=== PATIENT | male | born 1960 | race Caucasian/White ===

== ENCOUNTER → 2018-10-13 14:47 | Outpatient (CLI) | payer OTHER, SELFPAY ==
--- NOTE | 2018-10-13 | DI.ECHO.S_ITS ---
[facility]+ [facility] +---------+ : : [address] : [address] : : : : [id number] : : : : Phone: [phone] Echocardiogram Report + + :Name: KIM YODER Study Date: 10/13/2018 Height: 68 in : :[facility] Exam Location: IS Weight: 160 lb : : Gender: Male BSA: 1.9 m2 : :: 1960 Age: 58 yrs BP: 122/77 mmHg: :Reason For Study: MURMUR : : Performed By: Norman Monroy : :Referring: GUALBERTO DE JESUS : + + Interpretation Summary Left ventricular wall thickness is moderately increased. The ejection fraction is estimated to be 60-65%. There seems to be a raphae between the left and noncoronary cusp. The peak aortic velocity is 2 m/sec. Pulmonary artery pressures cannot be estimated because of the lack of a measurable TR jet velocity but the IVC suggests a CVP of around 3 mmHg. No prior echo for comparison. Procedure: A two-dimensional transthoracic echocardiogram with color flow and Doppler was performed. The study quality was technically good. There is no prior echocardiogram noted for this patient. The patient was in normal sinus rhythm during the exam. Left Ventricle: The left ventricle is normal in size. Left ventricular wall thickness is moderately increased. The ejection fraction is estimated to be 60-65%. There are no focal wall motion abnormalities. Diastolic parameters suggest a relaxation abnormality of the left ventricle, consistent with probable normal filling pressures. Right Ventricle: The right ventricle is at the upper limits of normal in size. The right ventricular systolic function is normal. Atria: The left atrium is mildly dilated. Right atrial size is normal. The interatrial septum is intact with no evidence for an atrial septal defect. Mitral Valve: The mitral valve is normal in structure and function. There is mild mitral annular calcification. There is trace mitral regurgitation. Aortic Valve: The aortic valve is moderately calcified. There seems to be a raphae between the left and noncoronary cusp. There is no hemodynamically significant valvular aortic stenosis. The peak aortic velocity is 2 m/sec. There is trace aortic regurgitation. Tricuspid Valve: The tricuspid valve is normal in structure and function. There is trace tricuspid regurgitation. Pulmonary artery pressures cannot be estimated because of the lack of a measurable TR jet velocity but the IVC suggests a CVP of around 3 mmHg. Pulmonic Valve: The pulmonic valve is normal in structure and function. There is trace pulmonic regurgitation. Great Vessels: The aortic root is normal size. The ascending aorta is at the upper limits of normal in size. The pulmonary artery is normal size. The IVC is of normal diameter and collapses greater than 50% with a sniff. This suggests a low right atrial pressure of 3 mm Hg. Pericardium/ Pleura There is no pericardial effusion. There is no pleural effusion. MMode/2D Measurements & Calculations LVIDd: 4.1 cm LVOT diam: 2.2 cm LVIDs: 2.0 cm Ao root diam: 3.0 cm FS: 51.4 % Aortic Jxn: 2.6 cm EPSS: 0.41 cm asc Aorta Diam: 3.5 cm IVSd: 1.2 cm Ao Arch Diam (Prox Trans): 2.7 cm LVPWd: 1.2 cm LV martinez. diameter/BSA (cm/m^2): 2.2 LV sys. diameter/BSA (cm/m^2): 1.1 LA dimension: 3.7 cm RA long axis: 4.1 cm LA A2 area: 20.3 cm2 RA area: 13.4 cm2 LA A4 area: 22.5 cm2 RA vol: 36.9 ml LA length (vol): 5.3 cm RA : 19.8 ml/m2 LA vol: 73.1 ml IVC diam: 1.5 cm LA vol index: 39.3 ml/m2 RVD1 (basal): 4.1 cm RVD2 (mid): 3.6 cm Doppler Measurements & Calculations Ao V2 max: 203.5 cm/sec LVOT Max Dixon: 92.7 cm/sec Ao V2 mean: 162.0 cm/sec LV V1 max P.4 mmHg Ao max P.6 mmHg LV V1 VTI: 21.4 cm Ao mean P.1 mmHg KEVIN(I,D): 1.8 cm2 Ao V2 VTI: 44.9 cm KEVIN(V,D): 1.7 cm2 sev ratio: 0.48 KEVIN indexed to BSA (cm^2/m^2): 0.97 MV E max dixon: 77.7 cm/sec TR max dixon: 211.9 cm/sec MV A max dixon: 91.8 cm/sec TR max P.0 mmHg MV E/A: 0.85 PA V2 max: 81.0 cm/sec Med Peak E' Dixon: 6.0 cm/sec PA V2 mean: 55.4 cm/sec E/E' med: 13.0 PA mean P.4 mmHg Lat Peak E' Dixon: 5.5 cm/sec PA pr(Accel): 21.6 mmHg E/E' lat: 14.2 PA Accel Time: 0.11 sec E/e' average: 13.6 MV dec time: 0.12 sec SV(LVOT): 81.3 ml Electronically signed by: Butch Sprague M.D. on Reading Physician:10/14/2018 12:17 AM
== END ==
PROVIDERS: Visit Provider Family Medicine
DX: R01.1 Cardiac murmur, unspecified (principal)
CPT/HCPCS: 93306

== ENCOUNTER 2019-05-22 09:19 | Emergency (ER) | payer OTHER, SELFPAY ==
[2019-05-22] VITALS (8 sets, daily range): BP systolic 148–188; BP diastolic 90–111; PULSE 82–96; RESP 13–20; TEMP 36.4; O2SAT 100; BMI 20.2
--- NOTE | 2019-05-22 09:51 | ED_ITS ---
HPI - Recheck/Abnormal Lab/Rx General Chief Complaint: Recheck/Abnormal Lab/Rx Stated Complaint: Swollen neck,recent surgery Time Seen by Provider: 05/22/19 09:24 Source: patient and family Mode of arrival: Ambulatory Limitations: no limitations History of Present Illness HPI narrative: Patient comes emergency department complaining of increased swelling at his incision site has left neck. Patient is postop day 6 status post left carotid which done different facility. Patient states that he has actually been fairly well since the surgery. He states that he has had mild sore throat for the last couple of days and that his voice has been hoarse since the surgery. He states that he has not had any fevers or chills, and no body aches or other feeling of being ill. States that he has had fluctuating blood pressure but it has mostly been normal at home. Girlfriend has not noticed any redness or drainage from the wound. Patient states the wound is not painful. He denies any feeling airway compression. He states that for the last several days he has felt as though something is ?in his throat? but that this feeling has not progressed. No other complaints at this time. Related Data Allergies Allergy/AdvReac Type Severity Reaction Status Date / Time gabapentin Allergy Verified 05/22/19 09:36 Review of Systems Constitutional Constitutional: Denies chills, Denies fatigue, Denies fever(s), Denies frequent falls, Denies lethargy and Denies weakness Eyes Eyes: Denies change in vision, Denies eye discharge, Denies irritation and Denies loss of vision ENT Ears, Nose, Mouth, and Throat: Denies change in voice, Denies dizziness, Denies neck pain, Denies sore throat and Denies throat swelling Cardiovascular Cardiovascular: Denies chest pain, Denies irregular heart rhythm, Denies lightheadedness, Denies palpitations, Denies dyspnea, Denies dyspnea on exertion and Denies orthopnea Respiratory Respiratory: Denies cough, Denies dyspnea, Denies dyspnea on exertion and Denies wheezing Gastrointestinal Gastrointestinal: Denies abdominal pain, Denies change in bowel habits, Denies diarrhea, Denies nausea and Denies vomiting Genitourinary Genitourinary: Denies hematuria, Denies flank pain, Denies urinary incontinence and Denies urinary urgency Musculoskeletal Musculoskeletal: Denies back pain, Denies muscle weakness, Denies neck pain, Denies numbness and Denies tingling Integumentary/Breasts Skin/Breast: Denies pruritus, Denies erythema, Denies rash and Denies wounds Comments: Swelling at incision site on left neck Neurologic Neurologic: Denies behavioral changes, Denies confusion, Denies dizziness, Denies frequent falls, Denies loss of vision, Denies numbness, Denies tingling and Denies weakness Psychiatric Psychiatric: Denies anxiety, Denies behavioral changes, Denies confusion, Denies depression, Denies homicidal ideation and Denies suicidal ideation Endocrine Endocrine: Denies fatigue, Denies flushing and Denies palpitations Hematologic/Lymphatic Hematologic/Lymphatic: Denies easy bruising Allergic/Immunologic Allergic/Immunologic: Denies urticaria, Denies throat swelling and Denies wheezing Patient History Medical History HTN (hypertension) (Acute) Surgical History S/P carotid endarterectomy (Acute) Social History Smoking Status: Former smoker alcohol intake frequency: 0-2 drinks per day Substance Use Type: does not use Exam Initial Vital Signs Initial Vital Signs: Vital Signs Temperature 97.5 F L 05/22/19 09:22 Pulse Rate 96 H 05/22/19 09:22 Respiratory Rate 20 05/22/19 09:22 Blood Pressure 187/111 H 05/22/19 09:22 Pulse Oximetry 100 05/22/19 09:22 Const General: cooperative and well developed Nutritional Appearance: well nourished Orientation: alert, awake, oriented x3 and not confused [facility] Head: normocephalic and atraumatic Ears: external ears normal Nose: external nose normal and No nasal discharge Face and sinus: face symmetric and No dry mucous membranes Mouth: oral mucosae normal and moist mucous membranes Teeth and gingiva: dentition normal Eyes General: appearance normal, both eyes and all related structures Eyelids: eyelids normal Conjunctivae: conjunctivae normal Sclera: sclerae normal Pupils: PERRL EOM: EOM intact bilaterally Neck Neck: trachea midline, No lymphadenopathy, No midline deformity and No JVD Lymphatic: No lymphedema Other: Patient's left neck incision site clean dry and intact, with Steri-Strips in place. Induration is noted beneath the skin in about a 1.5 cm border on each side of the incision. No erythema or wound dehiscence is noted. No fluctuance. Carotid pulse is intact. No bruit is auscultated. Chest Chest: normal inspection of the chest Resp Effort & Inspection: normal respiratory effort, able to speak in complete sentences, no respiratory distress and no use of accessory muscles Auscultation: clear to auscultation bilaterally, no rales, no rhonchi and no wheezes Cardio Rate: regular rate Rhythm: regular rhythm Heart Sounds: no click, no gallops, no murmurs and no rubs Pulses: normal peripheral pulses GI Inspection: non-distended Palpation: soft, no hepatosplenomegaly, No guarding, No pulsatile mass and No tender Back/Spine/Pelvis Back: No CVA tenderness Cervical Spine: cervical ROM normal and No pain with cervical ROM Thoracic/Lumbar Spine: thoracic and lumbar spine normal to inspection Skin General: no rashes or lesions noted, No jaundice and No petechiae Other: Neck incision as noted above. Neuro General: alert, oriented x3, gait normal and no focal motor deficits Speech: speech normal Extrem General: full ROM, no clubbing, cyanosis or edema, no pedal edema and no calf tenderness Psych Appearance: well kempt Mental Status: mental status grossly normal Attitude: cooperative Thought Content: normal and suicidality Judgment: judgment good Course Course Course Narrative: Patient was worked up with CT scan of the neck with IV contrast. This did show a fluid collection approximately 6 x 3 x 3 cm that was associated with the patient's carotid artery on the left. This did appear to be exerting a mild amount of pressure on both the carotid artery in the airway. I spoke with Dr. Ortega, the vascular attending on-call at [facility], and she stated that she felt the patient should come to in transfer and be admitted on her service. She requests the patient be kept NPO. I spoke with the patient and his significant other and related the findings and the plan to them and they were agreeable. The patient was comfortable and stable in the emergency department, and no further intervention was warranted, other than that the patient did receive metoprolol for his elevated blood pressure. Patient's labs showed a normal white blood cell count 9.8. The remainder of the labs were unremarkable. Orders Ordered: Discontinued Medications Metoprolol Succinate (Toprol Xl) 25 mg PO NOW ONE Stop: 05/22/19 09:52 Last Admin: 05/22/19 10:00 Dose: 25 mg Documented by: DONNIE Metoprolol Succinate (Toprol Xl) 25 mg PO NOW ONE Stop: 05/22/19 13:20 Last Admin: 05/22/19 13:51 Dose: 25 mg Documented by: DONNIE Vital Signs Vital signs: Vital Signs - 8 hr 05/22/19 09:22 05/22/19 10:00 05/22/19 11:00 Temperature 97.5 F L Pulse Rate 96 H 95 H 83 Respiratory Rate 20 Blood Pressure 187/111 H 172/102 H 148/98 H Blood Pressure [Right Arm] Pulse Oximetry 100 05/22/19 11:24 05/22/19 12:40 05/22/19 13:00 Temperature Pulse Rate 88 85 82 Respiratory Rate 16 16 Blood Pressure Blood Pressure [Right Arm] 148/98 H 158/102 H 157/90 H Pulse Oximetry 100 100 05/22/19 13:51 Temperature Pulse Rate 82 Respiratory Rate Blood Pressure 188/94 H Blood Pressure [Right Arm] Pulse Oximetry MDM - Recheck/Abnormal Lab/Rx Medical Records Attestation: I reviewed the patient's medical records. Lab Data Attestation: I reviewed the patient's lab results. Result diagrams: 05/22/19 10:08 05/22/19 10:11 Labs: Lab Results 05/22/19 05/22/19 Range/Units 10:08 10:11 WBC 9.8 (4.5-11.0) X10^3/uL RBC 3.85 L (4.5-5.9) X10^6/uL Hgb 11.5 L (13.5-17.5) g/dL Hct 33.2 L (41-53) % MCV 86.2 (80-100) fL MCH 30.0 (26-34) PG MCHC 34.8 (30-36) % RDW 13.2 (11.6-14.8) % Plt Count 404 H (150-400) X10^3/uL Neut % (Auto) 68.9 (50-75) % Lymph % (Auto) 19.3 L (25-40) % [place] % (Auto) 10.5 (3-14) % Eos % (Auto) 0.8 L (2-4) % Baso % (Auto) 0.5 (0-2) % Neut # (Auto) 6700 (7179-8088) /uL Lymph # (Auto) 1900 (1057-5703) /uL [place] # (Auto) 1000 H (0-900) /uL Eos # (Auto) 100 (0-450) /uL Baso # (Auto) 0 (0-100) /uL Sodium 128 L (137-145) mmol/L Potassium 4.5 (3.4-5.1) mmol/L Chloride 90 L (98-107) mmol/L Carbon Dioxide 28 (22-32) mmol/L BUN 16 (9-20) mg/dL Creatinine 0.50 L (0.66-1.25) mg/dL Estimated GFR > 60.0 (>60) mL/min BUN/Creatinine Ratio 32.0 H (6-22) Glucose 211 H (80-110) mg/dL Calcium 9.4 (8.4-10.2) mg/dL Imaging Data CT soft tissue neck with contrast: Radiologist's impression: PROCEDURE: CT SOFT TISSUE NECK W CON INDICATIONS: post-op swelling after carotid endarterectomy TECHNIQUE: After the administration of intravenous contrast, 3.0 mm axial sections acquired from the sella to the aortic arch. Additional oblique axial 3.0 mm sections acquired through the pharynx. 3 mm thick coronal and sagittal reformats were generated. For radiation dose reduction, the following was used: automated exposure control. COMPARISON: None. FINDINGS: Image quality: Diagnostic. Lymph nodes: No enlarged lymph nodes seen throughout the neck. Vessels: There is a prominent fluid collection containing air identified near the level of the left carotid bulb that extends along the left sternocleidomastoid muscle. This structure extends from the level of the angle of the mandible to the level of the thyroid cartilage and measures approximately 6.5 x 3.0 x 3.7 cm. Air is contained wit hin this structure. This fluid collection is noted to partially encase the carotid bulb and exerts mild mass effect on the proximal left internal carotid artery. No occlusion or intraluminal thrombus is appreciated. There is also mild mass effect identified involving the internal jugular vein at the level of the angle of the mandible without occlusion evident. Symmetric flow within the bilateral anterior cerebral arteries and middle cerebral arteries is evident within the brain. However, please note that these vessels are not adequately evaluated on this study. Moderate atherosclerotic irregularity is noted involving the right common carotid artery origin and the right carotid bulb without high-grade narrowing evident. Otherwise, the right internal carotid artery is unremarkable. 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 Neck spaces: Again, there is a loculated fluid collection along the lateral margin of the left neck. There may be edema extending into the retropharyngeal space. No loculated fluid collections are evident within the retropharyngeal space. The oropharynx, nasopharynx, and pharynx demonstrate no mucosal lesions. The vocal cords, false vocal cords, pyriform sinuses, epiglottis, vallecula, and tongue base appear to be within normal limits. Glands: The parotid and submandibular glands appear normal. Thyroid gland is not enlarged or adequately evaluated. Miscellaneous: Visualized brain and orbits appear normal. Lung apices appear clear. Superficial soft tissues appear normal. There is mild prominence of the wall of the upper esophagus. Bones: No suspicious bony lesions. Age-appropriate degenerative changes are present. Visualized sinuses and mastoids appear unremarkable. IMPRESSION: 1. Large heterogeneous fluid collection centered at the level of the left carotid bulb probably represents a postoperative fluid collection such as a hematoma or seroma, given the patient's history of recent carotid endarterectomy. However, a superimposed infection cannot be excluded and clinical correlation is recommended. 2. Large fluid collection within the left neck exerts mild mass effect on the proximal left internal carotid artery without occlusion or high grade narrowing appreciated. 3. Retropharyngeal edema/fluid is present without a definable fluid collection evident. Dictated by: Oren Parks M.D. on 05/22/2019 at 9:40 Approved by: Oren Parks M.D. on 05/22/2019 at 9:51 Discharge Plan Departure Patient Disposition: [facility] Clinical Impression: Fluid collection at surgical site Qualifiers: Encounter type: initial encounter Qualified Code(s): T88.8XXA - Other specified complications of surgical and medical care, not elsewhere classified, initial encounter Discharge Date/Time: 05/22/19 14:05 Referrals: Gonzales Becerra MD [Primary Care Provider] -
[2019-05-22] MEDS: METOPROLOL ER 25 MG TABLET PO ×2 (10:00→13:51)
--- NOTE | 2019-05-22 10:15 | DI.CT.S_ITS ---
PROCEDURE: CT SOFT TISSUE NECK W CON INDICATIONS: post-op swelling after carotid endarterectomy TECHNIQUE: After the administration of intravenous contrast, 3.0 mm axial sections acquired from the sella to the aortic arch. Additional oblique axial 3.0 mm sections acquired through the pharynx. 3 mm thick coronal and sagittal reformats were generated. For radiation dose reduction, the following was used: automated exposure control. COMPARISON: None. FINDINGS: Image quality: Diagnostic. Lymph nodes: No enlarged lymph nodes seen throughout the neck. Vessels: There is a prominent fluid collection containing air identified near the level of the left carotid bulb that extends along the left sternocleidomastoid muscle. This structure extends from the level of the angle of the mandible to the level of the thyroid cartilage and measures approximately 6.5 x 3.0 x 3.7 cm. Air is contained within this structure. This fluid collection is noted to partially encase the carotid bulb and exerts mild mass effect on the proximal left internal carotid artery. No occlusion or intraluminal thrombus is appreciated. There is also mild mass effect identified involving the internal jugular vein at the level of the angle of the mandible without occlusion evident. Symmetric flow within the bilateral anterior cerebral arteries and middle cerebral arteries is evident within the brain. However, please note that these vessels are not adequately evaluated on this study. Moderate atherosclerotic irregularity is noted involving the right common carotid artery origin and the right carotid bulb without high-grade narrowing evident. Otherwise, the right internal carotid artery is unremarkable. 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 Neck spaces: Again, there is a loculated fluid collection along the lateral margin of the left neck. There may be edema extending into the retropharyngeal space. No loculated fluid collections are evident within the retropharyngeal space. The oropharynx, nasopharynx, and pharynx demonstrate no mucosal lesions. The vocal cords, false vocal cords, pyriform sinuses, epiglottis, vallecula, and tongue base appear to be within normal limits. Glands: The parotid and submandibular glands appear normal. Thyroid gland is not enlarged or adequately evaluated. Miscellaneous: Visualized brain and orbits appear normal. Lung apices appear clear. Superficial soft tissues appear normal. There is mild prominence of the wall of the upper esophagus. Bones: No suspicious bony lesions. Age-appropriate degenerative changes are present. Visualized sinuses and mastoids appear unremarkable. IMPRESSION: 1. Large heterogeneous fluid collection centered at the level of the left carotid bulb probably represents a postoperative fluid collection such as a hematoma or seroma, given the patient's history of recent carotid endarterectomy. However, a superimposed infection cannot be excluded and clinical correlation is recommended. 2. Large fluid collection within the left neck exerts mild mass effect on the proximal left internal carotid artery without occlusion or high grade narrowing appreciated. 3. Retropharyngeal edema/fluid is present without a definable fluid collection evident. Dictated by: Oren Parks M.D. on 05/22/2019 at 9:40 Approved by: Oren Parks M.D. on 05/22/2019 at 9:51
[2019-05-22 10:24] LABS: Blood Urea Nitrogen 16 mg/dL (9-20); Calcium 9.4 mg/dL (8.4-10.2); Carbon Dioxide 28 mmol/L (22-32); Chloride 90 mmol/L (98-107); Estimated Glomerular Filt Rate > 60.0 mL/min (>60); Glucose 211 mg/dL (80-110); HEMOLYSIS 49 (0-50); Potassium 4.5 mmol/L (3.4-5.1); Sodium 128 mmol/L (137-145)
[2019-05-22 13:18] LABS: Add Manual Diff / Slide Review NO; Basophils Absolute Auto 0 /uL (0-100); Basophils Percent Auto 0.5 % (0-2); Eosinophils Absolute Auto 100 /uL (0-450); Eosinophils Percent Auto 0.8 % (2-4); Hematocrit 33.2 % (41-53); Hemoglobin 11.5 g/dL (13.5-17.5); Lymphocytes Absolute Auto 1900 /uL (1100-4500); Lymphocytes Percent Auto 19.3 % (25-40); Mean Corpuscular HGB Conc 34.8 % (30-36); Mean Corpuscular Volume 86.2 fL (80-100); Monocytes Absolute Auto 1000 /uL (0-900); Monocytes Percent Auto 10.5 % (3-14); Neutrophils Absolute Auto 6700 /uL (1500-7000); Neutrophils Percent Auto 68.9 % (50-75); Platelet Count 404 X10^3/uL (150-400); Red Blood Cell Count 3.85 X10^6/uL (4.5-5.9); Red Cell Distribution Width 13.2 % (11.6-14.8); White Blood Cell Count 9.8 X10^3/uL (4.5-11.0)
== END 2019-05-22 14:05 | disposition short-term general hospital (02) ==
PROVIDERS: Emergency Provider Emergency Medicine; PCP Family Medicine
DX: T88.8XXA Other specified complications of surgical and medical care, not elsewhere classified, initial encounter (principal); I10 Essential (primary) hypertension; R79.89 Other specified abnormal findings of blood chemistry
CPT/HCPCS: 36415; 70491; 80048; 85025; 99283; 99284; Q9967

== ENCOUNTER → 2020-06-13 14:56 | Outpatient (CLI) | payer OTHER, SELFPAY ==
[2020-06-13 17:15] LABS: Prostate Specific Antigen < 0.064 ng/mL (0.10-4.00)
== END ==
PROVIDERS: PCP Family Medicine; Referring Provider Radiology Radiation Oncology; Visit Provider Radiology Radiation Oncology
DX: C61 Malignant neoplasm of prostate (principal)
CPT/HCPCS: 36415; 84153

== ENCOUNTER → 2020-10-01 17:09 | Outpatient (CLI) | payer OTHER, SELFPAY ==
[2020-10-01] MEDS: COVID-19 VACC, Ad26(JANSSEN)/PF 0.5 ML IM (17:20)
== END ==
PROVIDERS: PCP Family Medicine; Visit Provider Internal Medicine
DX: Z23 Encounter for immunization (principal)
CPT/HCPCS: 0031A; 91303

== ENCOUNTER → 2020-12-24 10:04 | Outpatient (CLI) | payer OTHER, SELFPAY ==
--- NOTE | 2020-12-24 10:08 | DI.RAD.S_ITS ---
PROCEDURE: XR TIBIA FIBULA LT 2V INDICATIONS: LEFT CONNER PAIN TECHNIQUE: 2 views of the tibia and fibula were acquired. COMPARISON: None. FINDINGS: Bones: No fractures or dislocations. No suspicious bony lesions. The knee and ankle have mild degenerative changes. Soft tissues: No suspicious soft tissue calcifications or masses. IMPRESSION: No acute traumatic abnormality of the tibia or fibula. Dictated by: Wally Christensen M.D. on 12/24/2020 at 10:49 Approved by: Wally Christensen M.D. on 12/24/2020 at 10:54
== END ==
PROVIDERS: PCP Family Medicine; Referring Provider Family Medicine; Visit Provider Family Medicine
DX: M79.662 Pain in left lower leg (principal)
CPT/HCPCS: 73590

== ENCOUNTER → 2021-01-04 08:34 | Outpatient (CLI) | payer OTHER, SELFPAY ==
[2021-01-04 11:12] LABS: Prostate Specific Antigen < 0.064 ng/mL (0.10-4.00)
== END ==
PROVIDERS: PCP Family Medicine; Referring Provider Radiology Radiation Oncology; Visit Provider Radiology Radiation Oncology
DX: C61 Malignant neoplasm of prostate (principal)
CPT/HCPCS: 36415; 84153

== ENCOUNTER → 2021-07-03 09:23 | Outpatient (CLI) | payer OTHER, SELFPAY ==
[2021-07-03 11:46] LABS: COVID19 -Nasal RAPID Negative (Negative)
== END ==
PROVIDERS: PCP Family Medicine; Visit Provider Physician Assistant
DX: Z20.822 Contact with and (suspected) exposure to COVID-19 (principal)
CPT/HCPCS: 87635

== ENCOUNTER 2021-07-05 13:56 | Day surgery (SDC) | payer OTHER, SELFPAY ==
--- NOTE | 2021-07-05 | PATH_ITS ---
[facility] Accession Number: [id number] . 01 Material submitted: . PART A: colon - DESCENDING COLON POLYP 2MM PART B: sigmoid colon - SIGMOID COLON POLYP 6MM . 02 Diagnosis: A. Descending Colon, Polyp 2 MM, Biopsy: Tubular adenoma. . B. Sigmoid Colon, Polyp 6 MM, Biopsy: Benign lymphoid aggregate. L 07/09/2021 1510 Local . 02 Electronically signed: . Marlin Vigil MD, Pathologist NPI- [id number] . 01 Gross description: . Part A: DESCENDING COLON POLYP 2MM: Received in formalin is 1 fragment(s) of flores, soft tissue measuring 0.3 x 0.3 x 0.3 cm submitted entirely in 1 cassette(s) Part B: SIGMOID COLON POLYP 6MM: Received in formalin is 1 fragment(s) of flores, soft tissue measuring 0.3 x 0.3 x 0.3 cm submitted entirely in 1 cassette(s) /NEVIN 07/08/2021 1904 Local . 02 Pathologist provided ICD-10: D12.4 . 02 CPT . 542002, [id number] Performed at: 01 [facility] [address] [place] [address] [id number] MD Alex Osuna MD Phone: [phone] Performed at: 02 [facility] [address] [place], [place] [id number] MD Marlin Vigil MD Phone: [phone]
--- NOTE | 2021-07-05 12:44 | PM.HP.1 ---
History of Present Illness History of Present Illness Date Patient Seen: 07/05/21 Chief complaint: SCREENING COLONOSCOPY Narrative: 61 Years Old Male seen today for consideration of a screening colonoscopy. Last colonoscopy on 07/01/19 indicated for change in bowel habits, constipation, and weight loss. Prep was poor and 1 year recall recommended with double prep. Internal hemorrhoids noted, otherwise normal. Prior to that, had a screening colonoscopy in 2008 that was significant for a 5 mm hyperplastic polyp in the transverse colon. Previous GI symptoms were in the context of prostate cancer, patient is currently being treated for that and has gained his weight back. Denies any current constipation or other lower GI symptoms suggesting disease such as change in bowel habits, bleeding, abdominal pain or anemia. There's been no family history of colon cancer or colon polyps. Overall health issues have been stable, including no major cardiac events for at least 6 weeks. Past Medical History: Broken left leg (1987) Meningitis ? (1992) Broke hand (1988) BPH with PSA elevation Insomnia History of TIA Depression Prostate cancer Diabetes mellitus type 2 Left carotid artery stenosis Cardiac murmur Chronic gout Bladder cancer Hyperlipidemia Hypertension Past Surgical History: Appendectomy (1967) Carotid Artery Surgery (2018) Bladder Surgery Colonoscopy, 2018, poor prep Family History: Father: Hypertension, Diabetes, Melanoma, Neuropathy Mother: Breast Cancer 61 Sister: Brain Cancer Siblings: brother 1 1/2 years younger, sister 3 1/2 yrs younger Social History: Reviewed history from 05/02/2015 and no changes required: Marital Status: Children: Kisha Occupation: Guard [employer] Household Members: Kisha Education: Under Graduate Patient History Medical History (Updated 06/06/19 @ 00:00 by ) HTN (hypertension) Surgical History S/P carotid endarterectomy Family & Social History Tobacco & Substance use: Smoking Status Former smoker alcohol intake frequency 0-2 drinks per day Substance Use Type does not use Meds Home Medications and Allergies Home Medications Medication Instructions Recorded Confirmed Type atorvastatin 20 mg tablet mg 07/05/21 History glipizide 10 mg tablet mg 07/05/21 History metformin 1,000 mg tablet mg 07/05/21 History tamsulosin 0.4 mg capsule mg PO 07/05/21 History Allergies Allergy/AdvReac Type Severity Reaction Status Date / Time gabapentin Allergy Verified 07/05/21 14:43 Review of Systems Review of Systems Narrative: All remaining ROS were reviewed and negative except as addressed. Exam Narrative Exam Narrative: GENERAL: Alert and oriented, appearing stated age and in no acute distress. HEENT: Head normocephalic/atraumatic. Extraocular movements intact. LUNGS: Clear to ausculation bilaterally, no wheezes, rhonchi or rales. CV: Normal S1 and S2 with regular rate and rhythm, no audible murmurs, rubs or gallops. ABDOMEN: Soft, non-tender, non-distended, no organomegaly. Positive bowel sounds. EXTREMITIES: No clubbing, cyanosis, or edema. NEURO: Cranial nerves II through XII grossly intact, no focal deficits. PSYCH: Alert and oriented x 3. SKIN: No concerning lesions. Assessment & Plan Assessment & Plan narrative: 1. History of hyperplastic colon polyp 2. Screening for colon cancer with double prep Plan for colonoscopy. The nature and character of the procedure as well as anticipated results were discussed. The possibility of not completing the procedure was also discussed. Possible complications including aspiration pneumonia, bleeding, perforation and reaction to medications either for sedation or preparation and missed lesions were discussed. Questions were answered and proceeding to the colonoscopy was elected. Informed consent signed. I sincerely appreciate the referral allowing me to participate in this patient's care. Please contact me with any questions or concerns.
--- NOTE | 2021-07-05 12:46 | PM.OP.COLON ---
Operative Date/Time/Diagnoses Date of procedure: 07/05/21 Procedure Notes SCOAP/Timeout: 4:03 p.m. Procedure in detail: ENDOSCOPIST: Mindi Zaldivar MD Sedation RN: Corrie uDnham RN Sedation start time: 4:04 p.m. Sedation end time: 4:30 p.m. PROCEDURE: Colonoscopy with cold biopsy INDICATIONS: 1. History of hyperplastic colonic polyp 2. Screening for colon cancer MEDICATION: Levsin 0.125 mg sublingual, incremental doses of Versed and fentanyl until appropriate level sedation achieved. ASA CLASS: 2 CECAL WITHDRAWAL TIME: 15 minutes COMPLICATIONS: None. EXTENT OF PROCEDURE: Cecum. QUALITY OF PREP: Good with portions of liquid stool. PROCEDURE: Prior to insertion of the colonoscope, a digital rectal examination was accomplished with circumferential palpation of the distal rectal mucosa without significant findings being noted. The high-definition colonoscope was passed into the rectum in the usual fashion and advanced over to the cecum without difficulty. The ileocecal valve, appendiceal stoma, and medial wall all could be inspected and no abnormalities were seen. ASCENDING COLON: As the colonoscope was withdrawn, care was taken to expose and inspect the haustral folds and no abnormalities were seen. HEPATIC FLEXURE: Normal, no polyps, diverticula or other abnormalities. TRANSVERSE COLON: Normal, no polyps, diverticula or other abnormalities. DESCENDING COLON: Minor diverticulosis, otherwise, normal, no polyps, or other abnormalities. SIGMOID COLON: 6 mm polyp removed with cold biopsy forceps, excellent hemostasis. Otherwise, minor diverticulosis and no other abnormalities. RECTUM: Normal. J maneuver was produced. There was no significant perianal disease. The J maneuver was broken. The remainder of the rectum was inspected and there was no external hemorrhoid disease. The scope was withdrawn. IMPRESSION: 1. Descending colon x1, 2 mm, removed with cold biopsy forceps 2. Sigmoid polyp x1, 6 mm, removed with cold biopsy forceps 3. Left-sided diverticulosis, minor PLAN: 1. Follow-up in clinic status post pathology results. The possibility of a missed lesion including a malignancy has been discussed with the patient previously. Potential alarm symptoms have been discussed and should be reported immediately.
[2021-07-05 14:46] VITALS: BP 181/98; PULSE 61; RESP 16; TEMP 36.2; O2SAT 99; BMI 25.0
[2021-07-05] MEDS: LACTATED RINGERS 1,000 ML 200 ML IV (14:57)
[2021-07-05] MEDS: fentaNYL 250 MCG/5 ML INJ IV (16:12)
[2021-07-05] MEDS: MIDAZOLAM 5 MG/5 ML VIAL IV (16:12)
[2021-07-05 16:36] VITALS: BP 106/69; PULSE 73; RESP 14; TEMP 36.4; O2SAT 99
[2021-07-05 16:41] VITALS: BP 105/74; PULSE 78; RESP 12; O2SAT 99
[2021-07-05 16:46] VITALS: BP 113/68; PULSE 77; RESP 12; O2SAT 99
[2021-07-05 16:50] VITALS: BP 132/83; PULSE 77; RESP 12; TEMP 36.8; O2SAT 100
[2021-07-05 17:10] VITALS: BP 140/80; PULSE 80; RESP 16; TEMP 36.9; O2SAT 100
== END 2021-07-05 17:20 | disposition home or self-care (01) ==
PROVIDERS: PCP Family Medicine; Referring Provider Student in an Organized Health Care Education/Training Program; Visit Provider Student in an Organized Health Care Education/Training Program
PROC: 0DJD8ZZ Inspection of Lower Intestinal Tract, Via Natural or Artificial Opening Endoscopic (ICD-10-PCS; CPT 45378; principal; 2021-07-05 15:15)
DX: Z12.11 Encounter for screening for malignant neoplasm of colon (principal); Z86.010 Personal history of colon polyps; I10 Essential (primary) hypertension; E11.9 Type 2 diabetes mellitus without complications; Z86.73 Personal history of transient ischemic attack (TIA), and cerebral infarction without residual deficits; Z79.84 Long term (current) use of oral hypoglycemic drugs; K57.30 Diverticulosis of large intestine without perforation or abscess without bleeding; D12.4 Benign neoplasm of descending colon
CPT/HCPCS: 45380; 82962; J2250; J3010

== ENCOUNTER → 2022-01-02 09:23 | Outpatient (CLI) | payer OTHER, SELFPAY ==
[2022-01-02 11:18] LABS: Prostate Specific Antigen < 0.064 ng/mL (0.10-4.00)
== END ==
PROVIDERS: PCP Family Medicine; Referring Provider Urology; Visit Provider Urology
DX: C61 Malignant neoplasm of prostate (principal)
CPT/HCPCS: 36415; 84153

== ENCOUNTER → 2022-12-08 06:34 | Outpatient (CLI) | payer OTHER, SELFPAY ==
--- NOTE | 2022-12-08 | DI.ECHO.S_ITS ---
[facility] +---------+ : : [address] : [place] : : : : [id number] : : : : Phone: [phone] Echocardiogram Report + + :Name: KIM YODER Study Date: 12/08/2022 Height: 68 in : :[facility] ReadingLocation: Weight: 165 lb : : Gender: Male BSA: 1.9 m2 : :: 1960 Age: 62 yrs BP: 118/71 mmHg: :Reason For Study: CARDIAC MURMUR : :Ordering Physician: LIZA, : :GUALBERTO Performed By: Patti England : :Referring: GUALBERTO DE JESUS : + + Interpretation Summary The left ventricular cavity is small. The ejection fraction is estimated to be 65-70%. There is no echo evidence for significant left ventricular outflow tract obstruction. The right ventricle is normal in size and function. There is mild mitral regurgitation. Compared to the prior echo study, there has been an increase in the severity of mitral regurgitation. Currently calcified aortic valve. There is mild to moderately reduced leaflet mobility. On today's echo, appears to be tricuspid. The peak aortic velocity is 2.7 m/sec. The aortic valve mean gradient is 18 mmHg. The peak aortic velocity on the previous exam was 2.3 m/sec. The calculated aortic valve area is 1.2 cm2. There is mild to moderate aortic stenosis. There is mild to moderate aortic regurgitation. Compared to the prior echo study, there has been an increase in the severity of aortic regurgitation as well as aortic stenosis. The IVC is of normal diameter and collapses greater than 50% with a sniff. This suggests a low right atrial pressure of 3 mm Hg. Procedure: A two-dimensional transthoracic echocardiogram with color flow and Doppler was performed. The study quality was technically adequate. Comparison is made with the echocardiogram of 03/15/2019. The patient was in sinus rhythm with heart rates between 70-85 bpm during the exam. Left Ventricle: There is mild concentric left ventricular hypertrophy. The left ventricular cavity is small. There is no echo evidence for significant left ventricular outflow tract obstruction. There is no thrombus. The ejection fraction is estimated to be 65-70%. There are no focal wall motion abnormalities. Diastolic parameters suggest a relaxation abnormality of the left ventricle, consistent with probable normal filling pressures. Right Ventricle: The right ventricle is normal in size and function. Atria: The left atrium is mildly dilated. There has been no significant change since the previous study. Right atrial size is normal. There is no Doppler evidence for an interatrial shunt. Mitral Valve: The mitral valve leaflets appear moderately thickened, but open well. Heavy calcification of posterior mitral annulus. No significant mitral stenosis. There is mild mitral regurgitation. Compared to the prior echo study, there has been an increase in the severity of mitral regurgitation. Aortic Valve: The aortic valve is moderately calcified. There is mild to moderately reduced leaflet mobility. On today's echo, appears to be tricuspid. There is mild to moderate aortic stenosis. The peak aortic velocity is 2.7 m/sec. The aortic valve mean gradient is 18 mmHg. The calculated aortic valve area is 1.2 cm2. Compared to the prior echo study, there has been an increase in the severity of aortic stenosis. The peak aortic velocity on the previous exam was 2.3 m/sec. There is mild to moderate aortic regurgitation. Compared to the prior echo study, there has been an increase in the severity of aortic regurgitation. Tricuspid Valve: The tricuspid valve is normal in structure and function. There is trace tricuspid regurgitation. Pulmonary artery pressures cannot be estimated because of the lack of a measurable TR jet velocity. Pulmonic Valve: The pulmonic valve is not well visualized. There is trace pulmonic regurgitation. Great Vessels: The aortic root is normal size. The dimensions of the ascending aorta are normal. The IVC is of normal diameter and collapses greater than 50% with a sniff. This suggests a low right atrial pressure of 3 mm Hg. Pericardium/ Pleura There is no pericardial effusion. There is no pleural effusion. MMode/2D Measurements & Calculations LVIDd: 3.6 cm LVOT diam: 2.0 cm LVIDs: 1.9 cm Ao root diam: 3.0 cm FS: 45.2 % asc Aorta Diam: 3.5 cm IVSd: 1.3 cm Ao Arch Diam (Prox Trans): 3.1 cm LVPWd: 1.3 cm LV martinez. diameter/BSA (cm/m^2): 1.9 LV sys. diameter/BSA (cm/m^2): 1.0 LA A2 area: 20.5 cm2 RA long axis: 4.6 cm LA A4 area: 17.0 cm2 RA area: 14.6 cm2 LA length (vol): 5.1 cm RA vol: 38.8 ml LA vol: 58.6 ml RA : 20.6 ml/m2 LA vol index: 31.1 ml/m2 IVC diam: 1.2 cm RVD1 (basal): 3.4 cm RVD2 (mid): 3.2 cm TAPSE: 1.8 cm Doppler Measurements & Calculations Ao V2 max: 268.9 cm/sec LVOT Max Dixon: 105.7 cm/sec Ao V2 mean: 206.8 cm/sec LV V1 max P.5 mmHg Ao max P.9 mmHg LV V1 VTI: 25.4 cm Ao mean P.4 mmHg KEVIN(I,D): 1.3 cm2 Ao V2 VTI: 60.8 cm KEVIN(V,D): 1.2 cm2 sev ratio: 0.42 KEVIN indexed to BSA (cm^2/m^2): 0.69 AI P1/2t: 584.8 msec AI dec slope: 220.8 cm/sec2 MV E max dixon: 82.6 cm/sec PA V2 max: 81.2 cm/sec MV A max dixon: 85.6 cm/sec PA V2 mean: 62.7 cm/sec MV E/A: 0.96 PA mean P.7 mmHg Med Peak E' Dixon: 5.9 cm/sec PA pr(Accel): 22.5 mmHg E/E' med: 14.0 Lat Peak E' Dixon: 7.2 cm/sec E/E' lat: 11.5 E/e' average: 12.8 MV dec time: 0.21 sec SV(LVOT): 79.1 ml Reading Physician:05:13 PM
== END ==
PROVIDERS: PCP Family Medicine; Referring Provider Family Medicine; Visit Provider Family Medicine
DX: R01.1 Cardiac murmur, unspecified (principal); I34.0 Nonrheumatic mitral (valve) insufficiency
CPT/HCPCS: 93306

== ENCOUNTER 2023-01-02 15:14 | Emergency (ER) | payer OTHER, SELFPAY ==
[2023-01-02] VITALS (10 sets, daily range): BP systolic 107–154; BP diastolic 68–92; PULSE 61–86; RESP 16–18; TEMP 36.5; O2SAT 99–100; BMI 25.4
--- NOTE | 2023-01-02 15:33 | ED_ITS ---
HPI - Chest Pain General Chief Complaint: Chest Pain Stated Complaint: Nausea, Dizzy, Low BPM Time Seen by Provider: 01/02/23 15:23 Source: patient Mode of arrival: Ambulatory Limitations: no limitations History of Present Illness HPI narrative: This is a 62-year-old male with history of diabetes with retinopathy, dyslipidemia, prior stroke, bladder and prostate cancer treated with radiation and prior left carotid endarterectomy. Patient presents with complaint of chest pain that started with tightness in his chest substernally without radiation, approximately 55 minutes prior to evaluation. Patient describes a tad amount of shortness of breath. He states some mild nausea. No vomiting. He was sweaty when it initially started which is resolved. No swelling of extremities. No syncope. No issues with bowel movements or urination. He is not had similar symptoms in the past. Patient states he is on daily medications for cholesterol, diabetes, urination he does not take anything for blood pressure. He states only allergies or gabapentin. He states he is had left carotid endarterectomy. He only had radiation for his bladder and prostate cancer in 2018. Patient states no tobacco, alcohol or illicit. He had a stress test in 2019 which was negative. He has not had a cardiac catheterization. He states his grandfather had an HI but no other family members with cardiac issues. Patient's primary care is Dr. Becerra. Related Data Home Medications Medication Instructions Recorded Confirmed atorvastatin 20 mg tablet mg 07/05/21 glipizide 10 mg tablet mg 07/05/21 metformin 1,000 mg tablet mg 07/05/21 tamsulosin 0.4 mg capsule mg PO 07/05/21 Allergies Allergy/AdvReac Type Severity Reaction Status Date / Time gabapentin Allergy Verified 01/02/23 15:24 Review of Systems Review of Systems ROS Unobtainable: All systems reviewed & are unremarkable except as noted in HPI and below Patient History Medical History HTN (hypertension) Surgical History S/P carotid endarterectomy Social History household members: significant other Smoking Status: Never smoker Smoking Status: Never smoker alcohol intake frequency: holidays/special occasions only Substance Use Type: does not use Exam Narrative Exam Narrative: GENERAL: Alert and oriented x three, male in mild distress. HEENT: Head normocephalic, atraumatic, EOMI, pupils reactive, face symmetric, moist mucous membranes NECK: Supple, full range of motion CARDIOVASCULAR: Regular rate and rhythm without murmurs, rubs or gallops. No JVD. No swelling bilateral lower extremities RESPIRATORY: Breath sounds equal bilaterally, no wheezes rales or rhonchi. ABDOMEN: Soft, nontender. Normoactive bowel sounds all 4 quadrants. No guarding or rebound, rigidity, no mass, : No CVA tenderness EXTREMITIES: Normal range of motion, no clubbing or edema. Neurovascularly intact NEUROLOGICAL: Cranial nerves II through XII grossly intact. Moving all extremities SKIN: Warm, dry, no petechiae, no rashes or lesions. Initial Vital Signs Initial Vital Signs: Vital Signs Temperature 97.7 F 01/02/23 15:15 Pulse Rate 74 01/02/23 15:15 Respiratory Rate 18 01/02/23 15:15 Blood Pressure 118/79 01/02/23 15:15 Pulse Oximetry 100 01/02/23 15:15 Oxygen Delivery Method Room Air 01/02/23 15:15 Course Orders Ordered: ED Orders 01/02/23 15:21 EKG-12 Lead Routine 01/02/23 15:23 Complete Blood Count AUTO DIFF Stat Comprehensive Metabolic Panel Stat Lipase Stat NT-proBNP (BNP-Adult 18+) Stat PTT Partial Thromboplastin Carlos Stat Prothrombin Time INR Stat Troponin & CK Cardiac Panel Stat 01/02/23 15:34 XR chest 1V Stat EKG-12 Lead Stat Discontinued Medications Aspirin (Aspirin 81 Mg Chew Tab) 324 mg PO NOW ONE Stop: 01/02/23 15:35 Last Admin: 01/02/23 15:40 Dose: 324 mg Documented By: ELIAS Heparin Sodium (Porcine) (Heparin 5,000 Unit/Ml Vial) 4,000 unit IV NOW ONE Stop: 01/02/23 15:45 Last Admin: 01/02/23 15:58 Dose: 4,000 unit Documented By: MAYI Heparin Sodium/Dextrose (Heparin Drip) 25,000 unit in 500 mls @ 18.18 mls/hr IV CONT VA; Protocol Last Titration: 01/02/23 16:14 Dose: 12 units/kg/hr, 18.18 mls/hr Documented By: ELIAS Co-signed By: MAYI Admin: 01/02/23 15:53 Dose: 12 units/kg/hr, 18.18 mls/hr Documented By: MAYI Co-signed By: NR Nitroglycerin (Nitroglycerin 0.4 Mg Sl Tab) 0.4 mg SL [id number] PRN PRN Reason: chest pain Last Admin: 01/02/23 15:44 Dose: 0.4 mg Documented By: NR Vital Signs Vital signs: Vital Signs - 8 hr 01/02/23 15:15 01/02/23 15:44 01/02/23 15:25 Temperature 97.7 F Pulse Rate 74 64 75 Respiratory Rate 18 17 Blood Pressure 118/79 121/81 154/92 H Pulse Oximetry 100 99 Oxygen Delivery Method Room Air Room Air 01/02/23 15:30 01/02/23 15:35 01/02/23 15:41 Temperature Pulse Rate 67 66 66 Respiratory Rate 16 16 16 Blood Pressure 141/85 H 121/80 126/86 Pulse Oximetry 99 99 100 Oxygen Delivery Method Room Air Room Air 01/02/23 15:45 01/02/23 15:50 01/02/23 16:00 Temperature Pulse Rate 72 61 86 Respiratory Rate 16 17 17 Blood Pressure 129/86 111/71 111/68 Pulse Oximetry 99 100 100 Oxygen Delivery Method Room Air Room Air Room Air 01/02/23 16:03 Temperature Pulse Rate 65 Respiratory Rate 16 Blood Pressure 107/68 Pulse Oximetry 100 Oxygen Delivery Method Room Air MDM - Chest Pain Lab Data 01/02/23 15:23 01/02/23 15:23 Labs: Lab Results 01/02/23 01/02/23 01/02/23 Range/Units 15:23 15:23 15:23 WBC 8.3 (4.5-11.0) X10^3/uL RBC 4.88 (4.5-5.9) X10^6/uL Hgb 14.7 (13.5-17.5) g/dL Hct 42.3 (41-53) % MCV 86.8 (80-100) fL MCH 30.1 (26-34) PG MCHC 34.7 (30-36) % RDW 13.5 (11.6-14.8) % Plt Count 314 (150-400) X10^3/uL Neut % (Auto) 55.5 (50-75) % Lymph % (Auto) 33.0 (25-40) % [place] % (Auto) 9.4 (3-14) % Eos % (Auto) 1.5 L (2-4) % Baso % (Auto) 0.6 (0-2) % Neut # (Auto) 4600 (8691-9010) /uL Lymph # (Auto) 2700 (0498-7548) /uL [place] # (Auto) 800 (0-900) /uL Eos # (Auto) 100 (0-450) /uL Baso # (Auto) 0 (0-100) /uL PT 11.2 (10.1-12.7) SECONDS INR 1.0 (0.9-1.3) APTT 32 (26-36) SECONDS Sodium 139 (137-145) mmol/L Potassium 4.2 (3.4-5.1) mmol/L Chloride 100 (98-107) mmol/L Carbon Dioxide 29 (22-32) mmol/L BUN 18 (9-20) mg/dL Creatinine 0.86 (0.66-1.25) mg/dL Estimated GFR > 60 (>60) mL/min BUN/Creatinine Ratio 20.9 (6-22) Glucose 206 H (80-110) mg/dL Calcium 9.9 (8.4-10.2) mg/dL Total Bilirubin 0.5 (0.2-1.3) mg/dL AST 20 (17-59) IU/L ALT 19 (<50) IU/L Alkaline Phosphatase 70 (38-126) U/L Total Creatine Kinase 64 (55-170) U/L CK-MB (CK-2) TNP CK-MB (CK-2) Rel Index TNP Troponin I 0.068 H (0.01-0.034) ng/mL NT-Pro-B Natriuret Pep (<125) pg/mL Total Protein 8.0 (6.3-8.2) g/dL Albumin 4.6 (3.5-5.0) g/dL Globulin 3.4 (1.7-4.1) g/dL Albumin/Globulin Ratio 1.4 (1.0-2.8) Lipase 175 (23-300) U/L 01/02/23 Range/Units 15:23 WBC (4.5-11.0) X10^3/uL RBC (4.5-5.9) X10^6/uL Hgb (13.5-17.5) g/dL Hct (41-53) % MCV (80-100) fL MCH (26-34) PG MCHC (30-36) % RDW (11.6-14.8) % Plt Count (150-400) X10^3/uL Neut % (Auto) (50-75) % Lymph % (Auto) (25-40) % [place] % (Auto) (3-14) % Eos % (Auto) (2-4) % Baso % (Auto) (0-2) % Neut # (Auto) (3907-1092) /uL Lymph # (Auto) (5755-0753) /uL [place] # (Auto) (0-900) /uL Eos # (Auto) (0-450) /uL Baso # (Auto) (0-100) /uL PT (10.1-12.7) SECONDS INR (0.9-1.3) APTT (26-36) SECONDS Sodium (137-145) mmol/L Potassium (3.4-5.1) mmol/L Chloride (98-107) mmol/L Carbon Dioxide (22-32) mmol/L BUN (9-20) mg/dL Creatinine (0.66-1.25) mg/dL Estimated GFR (>60) mL/min BUN/Creatinine Ratio (6-22) Glucose (80-110) mg/dL Calcium (8.4-10.2) mg/dL Total Bilirubin (0.2-1.3) mg/dL AST (17-59) IU/L ALT (<50) IU/L Alkaline Phosphatase (38-126) U/L Total Creatine Kinase (55-170) U/L CK-MB (CK-2) CK-MB (CK-2) Rel Index Troponin I (0.01-0.034) ng/mL NT-Pro-B Natriuret Pep 403 H (<125) pg/mL Total Protein (6.3-8.2) g/dL Albumin (3.5-5.0) g/dL Globulin (1.7-4.1) g/dL Albumin/Globulin Ratio (1.0-2.8) Lipase (23-300) U/L Imaging Data Chest x-ray: My Impression: no acute process appreciated. Radiologist's Impression: Close Chest X-Ray (Signed) Cecilio Hardwick - 01/02/23 Launch?[address] [address] XRay Report Signed Patient: Doe Sotomayor MR#: [id number] : 1960 Acct:[id number] Age/Sex: 62 / M Date of Service: 01/02/23 Loc: ED Accession Number: [id number] ?? Procedure: XR chest 1V Ordering Provider: Kassie Fournier D.O. PROCEDURE:? XR CHEST 1V ? INDICATIONS:? chest pain ? TECHNIQUE:? One view of the chest was acquired.? ? COMPARISON:? None. ? FINDINGS:? ? Surgical changes and devices:? None.? ? Lungs and pleura:? Lungs are clear.? No pleural effusions or pneumothorax.? ? Mediastinum:? Mediastinal contours appear normal.? Heart size is normal.? ? Bones and chest wall:? No suspicious bony lesions.? Overlying soft tissues appear unremarkable.? ? IMPRESSION:? Normal for age, source of current chest pain symptoms is not seen. ? ? Dictated by: Cecilio Hardwick M.D. on 01/02/2023 at 15:57 ? ? Approved by: Cecilio Hardwick M.D. on 01/02/2023 at 15:57?? ECG Data Attestation: I personally reviewed and interpreted this ECG as follows: Interpretation: Sinus rhythm, left axis deviation, left bundle-branch block. Patient does have some elevation in aVL, no elevation in 1 but upwards T-wave. He does appear to have depression in 2 3 and AVF. Questionable LVH motion in lateral leads but also appears to have left bundle. 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 Becerra for a prior patient states he is had 1 recently in the last several weeks. Patient was able to get prior EKG he does have new ST elevation on his EKG. ST segments in 2 3 AVF and aVL are also new. MDM Narrative Medical decision making narrative: This is a 62-year-old male who presents with complaint of chest pain pressure, EKG was concerning for as possible ST-elevation plus-minus left bundle-branch block. There was a little delay in getting an old EKG for comparison was able to get on from his doctor's office and he does have new changes today. Labs are currently pending, chest x-ray. Patient started on aspirin, nitro sublingual and heparin initiated. Spoke with Dr. Espino at [facility] who accepts for transfer ED to ED. EKGs being faxed to [facility]. Critical Care Time Critical Care Time Attestation: The high probability of a clinically significant, sudden or life threatening deterioration of the [cardiac] system(s) required my full and direct attention, intervention and personal management. The aggregate critical care time was [] minutes. This time is in addition to time spent performing reported procedures but includes the following: [x] Data Review and interpretation [x] Patient assessment and monitoring of vital signs [x] Documentation [x] Medication orders and management Discharge Plan Departure Patient Disposition: [facility] Clinical Impression: ST elevation (STEMI) myocardial infarction Prescriptions: No Action atorvastatin 20 mg tablet Patient Comments: TAKE 1 TABLET BY MOUTH EVERY DAY glipizide 10 mg tablet Patient Comments: TAKE 1 TABLET BY MOUTH TWICE DAILY metformin 1,000 mg tablet Patient Comments: TAKE 1 TABLET BY MOUTH TWICE DAILY BEFORE MEALS tamsulosin 0.4 mg capsule PO Referrals: Gonzales Becerra MD [Primary Care Provider] -
--- NOTE | 2023-01-02 15:33 | PC.NURSE ---
pt placed on VS Q5min
--- NOTE | 2023-01-02 15:34 | DI.RAD.S_ITS ---
PROCEDURE: XR CHEST 1V INDICATIONS: chest pain TECHNIQUE: One view of the chest was acquired. COMPARISON: None. FINDINGS: Surgical changes and devices: None. Lungs and pleura: Lungs are clear. No pleural effusions or pneumothorax. Mediastinum: Mediastinal contours appear normal. Heart size is normal. Bones and chest wall: No suspicious bony lesions. Overlying soft tissues appear unremarkable. IMPRESSION: Normal for age, source of current chest pain symptoms is not seen. Dictated by: Cecilio Hardwick M.D. on 01/02/2023 at 15:57 Approved by: Cecilio Hardwick M.D. on 01/02/2023 at 15:57
[2023-01-02] MEDS: ASPIRIN 81 MG CHEW TAB 324 MG PO (15:40)
[2023-01-02 15:43] LABS: Prothrombin Time 11.2 SECONDS (10.1-12.7)
[2023-01-02] MEDS: NITROGLYCERIN 0.4 MG SL TAB SL (15:44)
[2023-01-02 15:45] LABS: PTT Partial Thromboplastin Tim 32 SECONDS (26-36)
[2023-01-02 15:46] LABS: Add Manual Diff / Slide Review NO; Basophils Absolute Auto 0 /uL (0-100); Basophils Percent Auto 0.6 % (0-2); Eosinophils Absolute Auto 100 /uL (0-450); Eosinophils Percent Auto 1.5 % (2-4); Hematocrit 42.3 % (41-53); Hemoglobin 14.7 g/dL (13.5-17.5); Lymphocytes Absolute Auto 2700 /uL (1100-4500); Mean Corpuscular HGB Conc 34.7 % (30-36); Mean Corpuscular Hemoglobin 30.1 PG (26-34); Mean Corpuscular Volume 86.8 fL (80-100); Monocytes Absolute Auto 800 /uL (0-900); Monocytes Percent Auto 9.4 % (3-14); Neutrophils Absolute Auto 4600 /uL (1500-7000); Neutrophils Percent Auto 55.5 % (50-75); Platelet Count 314 X10^3/uL (150-400); Red Blood Cell Count 4.88 X10^6/uL (4.5-5.9); Red Cell Distribution Width 13.5 % (11.6-14.8); White Blood Cell Count 8.3 X10^3/uL (4.5-11.0)
[2023-01-02] MEDS: HEPARIN DRIP 25,000 UNIT/500 ML IV.SOLN 18.18 UNIT IV (15:53)
[2023-01-02] MEDS: HEPARIN 5,000 UNIT/ML VIAL 4000 UNIT IV (15:58)
[2023-01-02 15:59] LABS: Alanine Aminotransferase 19 IU/L (<50); Albumin 4.6 g/dL (3.5-5.0); Albumin Globulin Ratio 1.4 (1.0-2.8); Alkaline Phosphatase 70 U/L (38-126); Aspartate Aminotransferase 20 IU/L (17-59); BUN Creatinine Ratio 20.9 (6-22); Bilirubin Total 0.5 mg/dL (0.2-1.3); Blood Urea Nitrogen 18 mg/dL (9-20); Calcium 9.9 mg/dL (8.4-10.2); Carbon Dioxide 29 mmol/L (22-32); Chloride 100 mmol/L (98-107); Creatine Kinase 64 U/L (55-170); Estimated Glomerular Filt Rate > 60 mL/min (>60); Globulin 3.4 g/dL (1.7-4.1); Glucose 206 mg/dL (80-110); HEMOLYSIS < 15 (0-50); Lipase 175 U/L (23-300); Potassium 4.2 mmol/L (3.4-5.1); Sodium 139 mmol/L (137-145)
[2023-01-02 16:08] LABS: NT-proBNP (BNP-Adult 18+) 403 pg/mL (<125)
[2023-01-02 16:10] LABS: Troponin I 0.068 ng/mL (0.01-0.034)
== END 2023-01-02 16:14 | disposition short-term general hospital (02) ==
PROVIDERS: Emergency Provider Emergency Medicine; PCP Family Medicine
DX: I21.3 ST elevation (STEMI) myocardial infarction of unspecified site (principal)
CPT/HCPCS: 36415; 71045; 80053; 82550; 83690; 83880; 84484; 85025; 85610; 85730; 93005; 96365; 96375; 99284; 99285; 99291; J1644

== ENCOUNTER → 2023-01-09 12:38 | Outpatient (CLI) | payer OTHER, SELFPAY ==
--- NOTE | 2023-01-09 | DI.RAD.S_ITS ---
PROCEDURE: XR CHEST 2V INDICATIONS: Acute cough TECHNIQUE: 2 views of the chest were acquired. COMPARISON: [facility], CR, XR CHEST 1 VIEW, 01/02/2023, 19:36. FINDINGS: Surgical changes and devices: None. Lungs and pleura: Bilateral lower lobe infiltrates. Small pleural effusions bilaterally. No pneumothorax. Mediastinum: Mediastinal contours are normal. Heart size is normal. Bones and chest wall: No suspicious bony abnormalities. Soft tissues appear unremarkable. IMPRESSION: Bilateral lower lobe infiltrates and small pleural effusions suspicious for pneumonia. Dictated by: Kenyetta Hadley M.D. on 01/09/2023 at 20:41 Approved by: Kenyetta Hadley M.D. on 01/09/2023 at 20:42
== END ==
PROVIDERS: PCP Family Medicine; Referring Provider Registered Nurse; Visit Provider Registered Nurse
DX: J90 Pleural effusion, not elsewhere classified (principal); R05.1 Acute cough; R91.8 Other nonspecific abnormal finding of lung field
CPT/HCPCS: 71046

== ENCOUNTER → 2023-12-17 08:46 | Outpatient (CLI) | payer OTHER, SELFPAY ==
--- NOTE | 2023-12-17 08:50 | DI.NM.S_ITS ---
PROCEDURE: NM JER PERF SPECT REST & STR Rest and exercise myocardial perfusion SPECT with gated imaging and ejection fraction RADIOPHARMACEUTICAL: 11.5 mCi Tc-99m sestamibi IV at rest and 25.3 mCi Tc-99m sestamibi IV at peak exercise. A one day-protocol was performed. INDICATIONS: CAD TECHNIQUE: Radiopharmaceutical was injected at peak stress test, and also at rest. SPECT images were obtained. SPECT myocardial perfusion images were displayed in short axis, horizontal long axis, and vertical long axis views. Gated images were reviewed using Ondore software. COMPARISON: None. CARDIAC STRESS: A standard Adam treadmill exercise tolerance test was performed by the patient under the supervision of an attending staff. The patient exercised for 5 minutes and 48 seconds; functional aerobic impairment (MAURICE) is +22%. Hemodynamic data: There is normal heart rate response to exercise stress. Hypotensive response to exercise (resting BP 128/78mmHg, 80/50mmHg at peak exercise). Patient achieved 96% of maximum predicted heart rate at peak exercise. Symptoms: Patient denied chest pain during exercise. EKG: Resting ECG showed sinus rhythm with horizontal ST depressions in the anterolateral leads. With exercise, there were severe downsloping ST depressions in the anterolateral leads and moderate downsloping ST depressions in the inferior leads; no ectopy. FINDINGS: Raw data: There is good myocardial labeling by radiotracer. No significant motion artifacts. Left ventricle function: Gated images at rest show mild hypokinesis with EF 55%.. No transient ischemic dilation; TID is 1.3 (normal less than 1.3). The left ventricle resting end-diastolic volume is 138 mL. Left ventricle stress ejection fraction is 39% with akinesis of the apical cap, distal anterior wall, and mid to distal septum; normal values are above 45%. Myocardial perfusion: There is a mildly intense apical defect at rest that worsens to severe with exercise and extends to distal septum and distal anterior wall, consistent with prior non-transmural infarction and significant aleksandra-infarct ischemia. SSS 20, SRS 14. IMPRESSION: Highly abnormal treadmill nuclear stress test consistent with prior non-transmural infarction and significant aleksandra-infarct ischemia. 1) Mildly intense apical defect at rest that worsens to severe with exercise and extends to distal septum and distal anterior wall, consistent with prior non-transmural infarction and significant aleksandra-infarct ischemia. SSS 20, SRS 14. 2) Normal left ventricular size and function (EF 55%) with mild hypokinesis of apex at rest. Post exercise, LV dilates with transient ischemic dilation ratio of 1.3. Post stress LVEF 39% with akinesis of the apical cap, distal anterior wall, and mid to distal septum; normal values are above 45%. 3) ECG diagnostic of ischemia. Resting ECG showed sinus rhythm with horizontal ST depressions in the anterolateral leads. With exercise, there were severe downsloping ST depressions in the anterolateral leads and moderate downsloping ST depressions in the inferior leads. 4) No angina during the study. 5) Reduced exercise tolerance (7.0METs, MAURICE +22%). Target heart rate reached. 6) Hypotensive response to exercise (resting BP 128/78mmHg, 80/50mmHg at peak exercise). 7) No prior nuclear stress test available for comparison. I called Dr. Becerra and left a voicemail on his phone to report high risk findings of this abnormal nuclear stress test. Recommend urgent cardiology consultation. Dictated by: Abel Williamson MD on 12/17/2023 at 16:39 Approved by: Abel Williamson MD on 12/17/2023 at 16:48
== END ==
LOC: NUCM 08:49
PROVIDERS: PCP Family Medicine; Referring Provider Family Medicine; Visit Provider Family Medicine
DX: R94.39 Abnormal result of other cardiovascular function study (principal); I25.10 Atherosclerotic heart disease of native coronary artery without angina pectoris
CPT/HCPCS: 78452; 93017; A9502

== ENCOUNTER → 2024-06-08 09:08 | Outpatient (CLI) | payer OTHER, SELFPAY | PROVIDERS: PCP Family Medicine; Referring Provider Family Medicine; Visit Provider Surgery | DX: E11.621 Type 2 diabetes mellitus with foot ulcer (principal); E11.42 Type 2 diabetes mellitus with diabetic polyneuropathy; L97.522 Non-pressure chronic ulcer of other part of left foot with fat layer exposed; E11.622 Type 2 diabetes mellitus with other skin ulcer; L97.822 Non-pressure chronic ulcer of other part of left lower leg with fat layer exposed; T81.89XA Other complications of procedures, not elsewhere classified, initial encounter; L98.8 Other specified disorders of the skin and subcutaneous tissue; S81.801A Unspecified open wound, right lower leg, initial encounter; S21.109A Unspecified open wound of unspecified front wall of thorax without penetration into thoracic cavity, initial encounter; I73.9 Peripheral vascular disease, unspecified; R60.0 Localized edema; L53.9 Erythematous condition, unspecified; I25.10 Atherosclerotic heart disease of native coronary artery without angina pectoris | CPT/HCPCS: 11042; 99203; 99214 ==

== ENCOUNTER → 2024-06-14 08:46 | Outpatient (CLI) | payer OTHER, SELFPAY | PROVIDERS: PCP Family Medicine; Referring Provider Family Medicine; Visit Provider Surgery | DX: E11.621 Type 2 diabetes mellitus with foot ulcer (principal); L97.522 Non-pressure chronic ulcer of other part of left foot with fat layer exposed; E11.622 Type 2 diabetes mellitus with other skin ulcer; L97.822 Non-pressure chronic ulcer of other part of left lower leg with fat layer exposed; I73.9 Peripheral vascular disease, unspecified; T81.89XA Other complications of procedures, not elsewhere classified, initial encounter; L98.8 Other specified disorders of the skin and subcutaneous tissue; S81.801A Unspecified open wound, right lower leg, initial encounter; S21.90XA Unspecified open wound of unspecified part of thorax, initial encounter; R60.0 Localized edema; L53.9 Erythematous condition, unspecified; R23.4 Changes in skin texture | CPT/HCPCS: 11042 ==

== ENCOUNTER → 2024-06-17 07:31 | Outpatient (CLI) | payer OTHER, SELFPAY ==
--- NOTE | 2024-06-17 07:32 | DI.US.S_ITS ---
PROCEDURE: US ARTERIAL DUPLEX LE BI INDICATIONS: Non-healing wounds of BLE, abnormal YASMANY TECHNIQUE: Color and pulse Doppler interrogation was performed of both lower extremity arterial systems, with image documentation. COMPARISON: None. FINDINGS: Right lower extremity: Common femoral artery: 60 cm/sec, with triphasic flow. Deep femoral artery: 53 cm/sec, with triphasic flow. Proximal superficial femoral artery: 99 cm/sec, with triphasic flow. Mid superficial femoral artery: 60 cm/sec, with triphasic flow. Distal superficial femoral artery: 52 cm/sec, with triphasic flow. Popliteal artery: 53 cm/sec, with triphasic flow. Posterior tibial artery: 27 cm/sec, with biphasic flow. Anterior tibial artery/dorsalis pedis: 29/9 cm/sec, with biphasic/monophasic flow. Ohara-scale imaging description: No stenosis from the common femoral through the popliteal. Normal waveforms in these vessels. Dorsalis pedis monophasic waveforms suggest distal small vessel disease. Left lower extremity: Common femoral artery: 83 cm/sec, with triphasic flow. Deep femoral artery: 55 cm/sec, with triphasic flow. Proximal superficial femoral artery: 79 cm/sec, with triphasic flow. Mid superficial femoral artery: 46 cm/sec, with triphasic flow. Distal superficial femoral artery: 68 cm/sec, with triphasic flow. Popliteal artery: 55/118 cm/sec, with biphasic flow. Posterior tibial artery: 54 cm/sec, with triphasic flow. Anterior tibial artery/dorsalis pedis: 93/15 cm/sec, with biphasic/monophasic flow. Ohara-scale imaging description: No stenosis above the popliteal. Findings in the popliteal artery suggest a possible stenosis of 50% or greater. Monophasic dorsalis pedis waveform is consistent with distal small vessel disease. IMPRESSION: 1. On the right, there is no stenosis from the common femoral through the popliteal, and there are normal waveforms in the structures. There is likely distal small vessel disease. 2. On the left, the common femoral and SFA are patent. The popliteal has a probable stenosis of 50% or greater. There is likely distal small vessel disease. Dictated by: Kenneth Brown M.D. on 06/17/2024 at 9:35 Approved by: Kenneth Brown M.D. on 06/17/2024 at 10:06
== END ==
PROVIDERS: PCP Family Medicine; Referring Provider Surgery; Visit Provider Surgery
DX: E11.621 Type 2 diabetes mellitus with foot ulcer (principal); L97.522 Non-pressure chronic ulcer of other part of left foot with fat layer exposed; L97.822 Non-pressure chronic ulcer of other part of left lower leg with fat layer exposed; S81.801A Unspecified open wound, right lower leg, initial encounter
CPT/HCPCS: 93925

== ENCOUNTER → 2024-06-21 09:19 | Outpatient (CLI) | payer OTHER, SELFPAY | PROVIDERS: PCP Family Medicine; Referring Provider Family Medicine; Visit Provider Surgery | DX: E11.42 Type 2 diabetes mellitus with diabetic polyneuropathy (principal); E11.621 Type 2 diabetes mellitus with foot ulcer; L97.522 Non-pressure chronic ulcer of other part of left foot with fat layer exposed; E11.622 Type 2 diabetes mellitus with other skin ulcer; L97.822 Non-pressure chronic ulcer of other part of left lower leg with fat layer exposed; L53.9 Erythematous condition, unspecified; R60.0 Localized edema; T81.89XA Other complications of procedures, not elsewhere classified, initial encounter; L98.8 Other specified disorders of the skin and subcutaneous tissue; S81.801A Unspecified open wound, right lower leg, initial encounter; S21.109A Unspecified open wound of unspecified front wall of thorax without penetration into thoracic cavity, initial encounter | CPT/HCPCS: 11042; 99213 ==

== ENCOUNTER → 2024-06-28 09:27 | Outpatient (CLI) | payer OTHER, SELFPAY | PROVIDERS: PCP Family Medicine; Referring Provider Family Medicine; Visit Provider Surgery | DX: E11.621 Type 2 diabetes mellitus with foot ulcer (principal); L97.522 Non-pressure chronic ulcer of other part of left foot with fat layer exposed; E11.622 Type 2 diabetes mellitus with other skin ulcer; L97.822 Non-pressure chronic ulcer of other part of left lower leg with fat layer exposed; T81.89XA Other complications of procedures, not elsewhere classified, initial encounter; L98.8 Other specified disorders of the skin and subcutaneous tissue; S81.801A Unspecified open wound, right lower leg, initial encounter; S21.109A Unspecified open wound of unspecified front wall of thorax without penetration into thoracic cavity, initial encounter; R23.4 Changes in skin texture; R60.0 Localized edema; L53.9 Erythematous condition, unspecified | CPT/HCPCS: 11042 ==

== ENCOUNTER → 2024-07-04 09:33 | Outpatient (CLI) | payer OTHER, SELFPAY | LOC: WC 09:33 | PROVIDERS: PCP Family Medicine; Referring Provider Family Medicine; Visit Provider Surgery | DX: E11.621 Type 2 diabetes mellitus with foot ulcer (principal); E11.42 Type 2 diabetes mellitus with diabetic polyneuropathy; L97.522 Non-pressure chronic ulcer of other part of left foot with fat layer exposed; E11.622 Type 2 diabetes mellitus with other skin ulcer; L97.822 Non-pressure chronic ulcer of other part of left lower leg with fat layer exposed; L53.9 Erythematous condition, unspecified; R60.0 Localized edema; T81.89XA Other complications of procedures, not elsewhere classified, initial encounter; I73.9 Peripheral vascular disease, unspecified; L98.8 Other specified disorders of the skin and subcutaneous tissue; S81.801A Unspecified open wound, right lower leg, initial encounter; S21.109A Unspecified open wound of unspecified front wall of thorax without penetration into thoracic cavity, initial encounter; I25.10 Atherosclerotic heart disease of native coronary artery without angina pectoris | CPT/HCPCS: 11042; 99213 ==

== ENCOUNTER → 2024-07-11 08:51 | Outpatient (CLI) | payer OTHER, SELFPAY | PROVIDERS: PCP Family Medicine; Referring Provider Family Medicine; Visit Provider Physician Assistant | DX: T81.89XA Other complications of procedures, not elsewhere classified, initial encounter (principal); L98.8 Other specified disorders of the skin and subcutaneous tissue; S81.801A Unspecified open wound, right lower leg, initial encounter | CPT/HCPCS: 11042; 99214 ==

== ENCOUNTER → 2024-07-18 09:18 | Outpatient (CLI) | payer OTHER, SELFPAY | LOC: WC 09:19 | PROVIDERS: PCP Family Medicine; Referring Provider Family Medicine; Visit Provider Surgery | DX: E11.42 Type 2 diabetes mellitus with diabetic polyneuropathy (principal); E11.622 Type 2 diabetes mellitus with other skin ulcer; L97.822 Non-pressure chronic ulcer of other part of left lower leg with fat layer exposed; L53.9 Erythematous condition, unspecified; T81.89XA Other complications of procedures, not elsewhere classified, initial encounter; L98.8 Other specified disorders of the skin and subcutaneous tissue; S81.801A Unspecified open wound, right lower leg, initial encounter | CPT/HCPCS: 11042; 97597 ==

== ENCOUNTER → 2024-07-25 08:46 | Outpatient (CLI) | payer OTHER, SELFPAY | PROVIDERS: PCP Family Medicine; Referring Provider Family Medicine; Visit Provider Surgery | DX: E11.42 Type 2 diabetes mellitus with diabetic polyneuropathy (principal); E11.622 Type 2 diabetes mellitus with other skin ulcer; L97.822 Non-pressure chronic ulcer of other part of left lower leg with fat layer exposed; T81.89XA Other complications of procedures, not elsewhere classified, initial encounter; L98.8 Other specified disorders of the skin and subcutaneous tissue; S81.801A Unspecified open wound, right lower leg, initial encounter; L53.9 Erythematous condition, unspecified; R60.0 Localized edema; I73.9 Peripheral vascular disease, unspecified; I25.10 Atherosclerotic heart disease of native coronary artery without angina pectoris; Z79.01 Long term (current) use of anticoagulants; Z79.82 Long term (current) use of aspirin | CPT/HCPCS: 11042; 99213 ==

== ENCOUNTER → 2024-08-01 09:09 | Outpatient (CLI) | payer OTHER, SELFPAY | LOC: WC 09:11 | PROVIDERS: PCP Family Medicine; Referring Provider Family Medicine; Visit Provider Surgery | DX: E11.42 Type 2 diabetes mellitus with diabetic polyneuropathy (principal); E11.622 Type 2 diabetes mellitus with other skin ulcer; L97.822 Non-pressure chronic ulcer of other part of left lower leg with fat layer exposed; I73.9 Peripheral vascular disease, unspecified; S81.801D Unspecified open wound, right lower leg, subsequent encounter | CPT/HCPCS: 99213 ==

== ENCOUNTER → 2024-08-08 08:55 | Outpatient (CLI) | payer OTHER, SELFPAY | PROVIDERS: PCP Family Medicine; Referring Provider Family Medicine; Visit Provider Surgery | DX: E11.42 Type 2 diabetes mellitus with diabetic polyneuropathy (principal); L98.8 Other specified disorders of the skin and subcutaneous tissue; S81.801D Unspecified open wound, right lower leg, subsequent encounter | CPT/HCPCS: 99213 ==

== ENCOUNTER → 2024-08-22 14:12 | Outpatient (CLI) | payer OTHER, SELFPAY | PROVIDERS: PCP Family Medicine; Referring Provider Family Medicine; Visit Provider Surgery | DX: E11.42 Type 2 diabetes mellitus with diabetic polyneuropathy (principal); Z86.31 Personal history of diabetic foot ulcer | CPT/HCPCS: 99212; 99213 ==

== ENCOUNTER → 2025-02-10 08:38 | Outpatient (CLI) | payer MEDICARE, OTHER, SELFPAY ==
--- NOTE | 2025-02-10 08:41 | DI.CT.S_ITS ---
PROCEDURE: CT CHEST W CON INDICATIONS: chronic cough TECHNIQUE: After the administration of intravenous contrast, 5 mm thick sections acquired from the pulmonary apices to the posterior costophrenic angles. 1 mm axial lung, 5 mm thick coronal and sagittal reformats and 7 mm axial MIP were acquired. For radiation dose reduction, the following was used: automated exposure control, adjustment of mA and/or kV according to patient size. COMPARISON: [facility], CT, CT ABDOMEN PELVIS WITH CONTRAST, 02/12/2024, 22:11. FINDINGS: Image quality: Diagnostic. Lower Neck: No enlarged lymph nodes. Thyroid: No thyroid nodules which require sonographic follow up, per consensus guidelines. Axillae: No enlarged lymph nodes. Chest Wall: Unremarkable. Bones: Unremarkable. Lungs and Pleura: Large right pleural effusion and moderate left pleural effusion. Collapse of the right lower lobe. Compressive left basilar atelectasis. No pulmonary edema. Heart: Remote CABG. Heart size is mildly enlarged. Multiple coronary artery stents. No pericardial effusion. Thoracic Vessels: The aorta and pulmonary arteries demonstrate normal size. Mediastinum and Rafaela: No enlarged lymph nodes. Esophagus: No wall thickening. No hiatal hernia. Upper Abdomen: Visualized upper abdomen solid organs and bowel loops demonstrate passive congestion in the liver. Spleen is normal in size. IMPRESSION: 1. Mild cardiomegaly. Remote CABG and coronary artery stents. 2. Large right pleural effusion with collapse of the right lower lobe, moderate left pleural effusion with compressive left basilar atelectasis. Dictated by: Kenneth Brown M.D. on 02/10/2025 at 10:00 Approved by: Kenneth Brown M.D. on 02/10/2025 at 10:05
== END ==
PROVIDERS: PCP Family Medicine; Referring Provider Family Medicine; Visit Provider Family Medicine
DX: J90 Pleural effusion, not elsewhere classified (principal); J98.11 Atelectasis; R05.3 Chronic cough; I51.7 Cardiomegaly; Z95.1 Presence of aortocoronary bypass graft; Z95.5 Presence of coronary angioplasty implant and graft
CPT/HCPCS: 71260; Q9967

== ENCOUNTER 2025-02-10 09:22 | Inpatient (IN) | payer MEDICARE, OTHER, SELFPAY ==
[2025-02-10] VITALS (14 sets, daily range): BP systolic 110–145; BP diastolic 64–77; PULSE 67–90; RESP 16–23; TEMP 36.3–36.5; O2SAT 88–100; BMI 24.5
--- NOTE | 2025-02-10 09:39 | ED_ITS ---
HPI - General Adult General Chief complaint: Shortness of Breath/Dyspnea Stated complaint: Sent from Radiology, Fluid in lungs Time Seen by Provider: 02/10/25 09:26 History of Present Illness HPI narrative: Pt presents to the ER with a past medical history significant for quadruple bypass surgery in March of last year, congestive heart failure, and a heart murmur. The patient, Doe, reports experiencing a persistent cough since his bypass surgery, which has progressively worsened over the past 6 months. He also notes shortness of breath, particularly during exercise, stating that he runs out of oxygen if he goes too fast and has to stop and wait. No fever. No chest pain. No palpitations. Doe describes a gagging cough at times, but denies nausea. He has been experiencing on-and-off diarrhea for months. The patient has a history of leg swelling, which he reports has recently improved, leading him to stop taking his diuretic about 2-3 weeks ago after consulting with his bench assembly inspector. He has no known history of blood clots in his lungs, asthma, or COPD. The patient does not smoke, drink alcohol, or use recreational drugs. He is currently taking aspirin and Plavix, as well as a medication to strengthen his heart. Recent blood work was done, including A1C testing, but specific results are not available. Doe has consulted with his bench assembly inspector and primary care physician regarding his symptoms, and was referred for further evaluation. Had a CT chest done earlier and sent to the ER to address those findings. Related Data Home Medications ?Medication ?Instructions ?Recorded ?Confirmed atorvastatin 20 mg tablet mg 07/05/21 glipizide 10 mg tablet mg 07/05/21 metformin 1,000 mg tablet mg 07/05/21 tamsulosin 0.4 mg capsule mg PO 07/05/21 Allergies Allergy/AdvReac Type Severity Reaction Status Date / Time gabapentin Allergy Verified 02/10/25 09:36 Patient History Medical History Stroke Expressive aphasia Myocardial infarction (~12/2022) Bladder cancer Chronic gout Hyperlipidemia, unspecified Left carotid artery stenosis TIA (transient ischemic attack) Prostate cancer BPH w urinary obs/LUTS DVT (deep venous thrombosis) GERD without esophagitis Coronary artery disease Type 2 diabetes mellitus HTN (hypertension) Surgical History S/P appy Status post aorto-coronary artery bypass graft (~03/2024) S/P carotid endarterectomy Social History household members: significant other Smoking Status: Never smoker alcohol intake: never alcohol intake frequency: holidays/special occasions only Exam Narrative Exam Narrative: VS as noted above Focused physical exam as follows: General: Well developed, well nourished, no acute distress HEENT: pink palpebral conjunctiva, anicteric sclera, LETTY, moist mucous membranes, no JVD, no cervical lymphadenopathy Lungs: no respiratory distress, clear to auscultation without wheezes or crackles; somewhat decreased BS on the right side Heart: normal rate, regular rhythm, no appreciable murmurs Abdomen: soft, nontender, no rebound or rigidity Musculoskeletal: no gross deformities with full ROM in all extremities, trace pitting edema bilaterally Skin: pink, warm; no rashes Neuro:? AAOx3, GCS 15, nonfocal exam Psyche: no SI/HI, normal affect Initial Vital Signs Initial Vital Signs: Vital Signs Pulse Rate 79 02/10/25 09:30 Respiratory Rate 23 02/10/25 09:30 Pulse Oximetry 98 02/10/25 09:30 Course Orders Ordered: Acetaminophen (Acetaminophen 325 Mg Tablet) 650 mg PO Q6H PRN PRN Reason: Fever/Mild Pain (1-3) Al Hydrox/Mg Hydrox/Simethicone (Mag Hydrox/Alum/Simeth 30 Ml Udc) 30 ml PO Q6HR PRN PRN Reason: Dyspepsia Aspirin (Aspirin Ec 81 Mg Tablet) 81 mg PO DAILY [facility] Last Admin: 02/11/25 09:44 Dose: 81 mg Documented By: CHIP Clopidogrel Bisulfate (Clopidogrel 75 Mg Tablet) 75 mg PO DAILY [facility] Last Admin: 02/11/25 09:43 Dose: 75 mg Documented By: CHIP Enoxaparin Sodium (Enoxaparin 40 Mg/0.4 Ml Syringe) 40 mg SUBCUT DAILY [facility] Last Admin: 02/11/25 09:44 Dose: 40 mg Documented By: CHIP Furosemide (Furosemide 40 Mg/4 Ml Vial) 40 mg IV Q8H [facility] Last Admin: 02/11/25 10:45 Dose: 40 mg Documented By: Admin: 02/11/25 02:06 Dose: 40 mg Documented By: Admin: 02/10/25 18:50 Dose: 40 mg Documented By: AUDREY Dextrose (D10w) 100 mls @ 999 mls/hr IV PRN PRN PRN Reason: Hypoglycemia Insulin Human Lispro (Insulin Lispro 100 Unit/Ml 3ml Vial) 0 unit SUBCUT ACHS [facility]; Protocol Last Admin: 02/11/25 11:39 Dose: Not Given Documented By: CHIP Magnesium Hydroxide (Magnesium Hydroxide 30 Ml Udc) 30 ml PO DAILY PRN PRN Reason: Constipation Metoprolol Succinate (Metoprolol Er 25 Mg Tablet) 25 mg PO DAILY [facility] Last Admin: 02/11/25 08:23 Dose: 25 mg Documented By: CHIP Naloxone HCl (Naloxone 0.4 Mg/Ml Vial) 0.2 mg IV Q2MIN PRN PRN Reason: Opiate Reversal Ondansetron HCl (Ondansetron 4 Mg/2 Ml Inj) 4 mg IV Q8HR PRN PRN Reason: Nausea And Vomiting Pantoprazole Sodium (Pantoprazole Dr 40 Mg Tablet) 40 mg PO 0700 [facility] Last Admin: 02/11/25 06:35 Dose: 40 mg Documented By: LALA Sodium Chloride (Sodium Chloride 0.9% Flush) 10 ml IV PRN PRN PRN Reason: Flush Last Admin: 02/11/25 02:06 Dose: 10 ml Documented By: Admin: 02/10/25 18:50 Dose: 10 ml Documented By: ADUREY Sodium Chloride (Sodium Chloride 0.9% Flush) 10 ml IV BID [facility] Last Admin: 02/11/25 09:44 Dose: 10 ml Documented By: Admin: 02/10/25 20:36 Dose: 10 ml Documented By: LALA Discontinued Medications Furosemide (Furosemide 40 Mg/4 Ml Vial) 40 mg IV NOW ONE Stop: 02/10/25 10:07 Last Admin: 02/10/25 10:18 Dose: 40 mg Documented By: YEMI Lidocaine HCl (Lidocaine 1% 20 Ml) 20 ml INJ INTRA-OP ONE Stop: 02/10/25 17:06 Last Admin: 02/10/25 18:47 Dose: Not Given Documented By: AUDREY Metformin HCl (Metformin Hcl 500 Mg Tablet) 1,000 mg PO 0800 [facility] Last Admin: 02/11/25 08:25 Dose: 1,000 mg Documented By: CHIP Potassium Chloride (Potassium Chloride 20 Meq Tab) 40 meq PO NOW ONE Stop: 02/11/25 07:16 Last Admin: 02/11/25 08:23 Dose: 40 meq Documented By: CHIP Vital Signs Vital signs: Vital Signs - 8 hr 02/10/25 09:30 02/10/25 09:33 02/10/25 09:33 Temperature Pulse Rate 79 76 Respiratory Rate 23 22 Blood Pressure 145/69 H Pulse Oximetry 98 Oxygen Delivery Method 02/10/25 09:36 02/10/25 14:55 02/10/25 15:15 Temperature 97.4 F L Pulse Rate 77 80 68 Respiratory Rate 16 16 Blood Pressure 140/64 124/70 Pulse Oximetry 99 97 Oxygen Delivery Method Room Air 02/10/25 15:30 Temperature Pulse Rate 67 Respiratory Rate 19 Blood Pressure 116/69 Pulse Oximetry Oxygen Delivery Method Medical Decision Making Lab Data 02/10/25 09:34 02/11/25 04:13 Labs: Lab Results 02/10/25 Range/Units 09:34 WBC 7.0 (4.5-11.0) X10^3/uL RBC 4.47 L (4.5-5.9) X10^6/uL Hgb 13.0 L (13.5-17.5) g/dL Hct 39.7 L (41-53) % MCV 88.7 (80-100) fL MCH 29.1 (26-34) PG MCHC 32.8 (30-36) % RDW 17.0 H (11.6-14.8) % Plt Count 304 (150-400) X10^3/uL Neut % (Auto) 72.3 (50-75) % Lymph % (Auto) 13.6 L (25-40) % Collier % (Auto) 12.2 (3-14) % Eos % (Auto) 0.8 L (2-4) % Baso % (Auto) 1.1 (0-2) % Neut # (Auto) 5100 (8966-4668) /uL Lymph # (Auto) 1000 L (5069-6885) /uL Collier # (Auto) 900 (0-900) /uL Eos # (Auto) 100 (0-450) /uL Baso # (Auto) 100 (0-100) /uL PT 13.4 H (9.4-12.5) SECONDS INR 1.2 (0.9-1.3) D-Dimer 1543 H (<500) ng/ml Sodium 138 (137-145) mmol/L Potassium 4.2 (3.4-5.1) mmol/L Chloride 103 (98-107) mmol/L Carbon Dioxide 28 (22-32) mmol/L BUN 18 (9-20) mg/dL Creatinine 1.04 (0.66-1.25) mg/dL Estimated GFR > 60 (>60) mL/min BUN/Creatinine Ratio 17.3 (6-22) Glucose 125 H (70-99) mg/dL Calcium 8.8 (8.4-10.2) mg/dL Magnesium 2.2 (1.6-2.3) mg/dL Total Bilirubin 0.9 (0.2-1.3) mg/dL AST 43 (17-59) IU/L ALT 27 (<50) IU/L Alkaline Phosphatase 111 (38-126) U/L Total Creatine Kinase 100 (55-170) U/L Troponin I 0.015 (0.01-0.034) ng/mL NT-Pro-B Natriuret Pep 9780 H (<125) pg/mL Total Protein 7.4 (6.3-8.2) g/dL Albumin 4.1 (3.5-5.0) g/dL Globulin 3.3 (1.7-4.1) g/dL Albumin/Globulin Ratio 1.2 (1.0-2.8) Procalcitonin 0.087 (<0.5) ng/mL Imaging Data venous doppler bilateral: My Impression: IMPRESSION: No findings of deep venous thrombosis in either lower extremity. There is chronic appearing superficial venous thrombosis seen involving the proximal right greater saphenous vein. ECG Data Interpretation: 1000 -NSR @ 76; no STTW changes; QTc 544 MDM Narrative Medical decision making narrative: HPI, PMHx, PSHx, Medication list, Allergies, ROS and Focused exam were reviewed above. ?Differential diagnosis as noted below. ?Social determinants affecting care considered. ?All of these were taken into consideration warranting above listed work up. ?Consultations as deemed necessary were documented below (if listed). Labs (if ordered and noted) were independently reviewed by me. Imaging studies (if ordered and noted) were independently reviewed by me EKG (if noted) was independently reviewed by me External documents (if reviewed) are documented above Initial VS noted above. ? Differential diagnosis considered include (but not limited to) the following: CHF exacerbation, cardiomyopathy, ACS, PE, pleural effusion, lung neoplasm, pneumonia, viral resp illness, symptomatic anemia, liver or kidney failure, electrolyte imbalance, adverse effect of illicit drug/ETOH Pt interviewed and examined. Stable vital signs without hypoxia or respiratory distress. Work up initiated. Bedside EKG showed no ST elevation or ectopy. CT chest results reviewed IMPRESSION: 1. Mild cardiomegaly. Remote CABG and coronary artery stents. 2. Large right pleural effusion with collapse of the right lower lobe, moderate left pleural effusion with compressive left basilar atelectasis. Venous doppler US negative for DVT. Troponin negative. BNP is elevated. D-dimer is elevated as well but studies done earlier was not a CTA PE protocol. Unable to do a CTA PE study as he received contrast earlier today. Venous doppler US of the lower extremities ordered - read by radiologist as negative for DVT but mentioned chronic appearing SVT. Paged [facility] bench assembly inspector regarding plan of care. Finally got a hold of cardiology @ 1600 (Dr. Johnson) - advised aggressive diuresis and considering degree of pleural effusion, recommended thoracentesis. Discussed case with Dr. Mcdaniels regarding admission, surg consult for thoracentesis and diuresis. Pt belongs to Dr. Robin Discussed case with Dr. Hernandez (surgeon) - can do thoracentesis later tonight; he came to the ER to evaluate pt but considering pt is on ASA and Plavix, was concerned about potential bleeding in case he develops a pneumothorax post procedure and requiring a chest tube. He preferred to allow radiology to do US guided procedue (likely Thursday) but if Dr. Robin felt it needed to be done more urgently, he can be contacted again. Discussed case with Dr. Robin - accepts; he is aware of the delay in getting thoracentesis done and rationale, venous doppler US findings suggestive of chronic appearing SVT (possible DVT considering proximity to deep veins) and elevated D-dimer as a PE has not been ruled out at this time. Pt is agreeable with admission. Discharge Plan Departure Patient Disposition: Admitted As Inpatient Clinical Impression: Pleural effusion Acute CHF Qualifiers: Heart failure type: unspecified Qualified Code(s): I50.9 - Heart failure, unspecified Admit Date/Time: 02/10/25 16:50 Admit Provider: Gonzales Becerra
--- NOTE | 2025-02-10 09:56 | EKG_ITS ---
[place] [address] [address] [place] [id number] Test Date: 2025-02-10 Pat Name: Doe Sotomayor Department: [facility] Room: Gender: Male Street Supervisor: YEMI : 1960 Requested By: Order Number: [id number] Reading MD: Brent Trotter MD Measurements Intervals [place] Rate: 76 P: 48 WV: 148 QRS: 205 QRSD: 164 T: 23 QT: 484 QTc: 544 Interpretive Statements Normal sinus rhythm Right bundle branch block (new since prior, 2022) Anterior infarct , age undetermined Electronically Signed On 02-11-2025 9:40:31 PDT by Brent Trotter MD
[2025-02-10 09:57] LABS: Add Manual Diff / Slide Review NO; Hematocrit 39.7 % (41-53); Hemoglobin 13.0 g/dL (13.5-17.5); Lymphocytes Absolute Auto 1000 /uL (1100-4500); Mean Corpuscular HGB Conc 32.8 % (30-36); Mean Corpuscular Hemoglobin 29.1 PG (26-34); Mean Corpuscular Volume 88.7 fL (80-100); Platelet Count 304 X10^3/uL (150-400)
[2025-02-10 10:04] LABS: Alanine Aminotransferase 27 IU/L (<50); Albumin 4.1 g/dL (3.5-5.0); Albumin Globulin Ratio 1.2 (1.0-2.8); Alkaline Phosphatase 111 U/L (38-126); Blood Urea Nitrogen 18 mg/dL (9-20); Calcium 8.8 mg/dL (8.4-10.2); Carbon Dioxide 28 mmol/L (22-32); Chloride 103 mmol/L (98-107); Creatine Kinase 100 U/L (55-170); Estimated Glomerular Filt Rate > 60 mL/min (>60); Globulin 3.3 g/dL (1.7-4.1); Glucose 125 mg/dL (70-99); HEMOLYSIS 31 (0-50); Potassium 4.2 mmol/L (3.4-5.1); Sodium 138 mmol/L (137-145); Total Protein 7.4 g/dL (6.3-8.2)
[2025-02-10 10:14] LABS: NT-proBNP (BNP-Adult 18+) 9780 pg/mL (<125)
[2025-02-10 10:16] LABS: Troponin I 0.015 ng/mL (0.01-0.034)
[2025-02-10] MEDS: FUROSEMIDE 40 MG/4 ML VIAL IV ×2 (10:18→18:50)
[2025-02-10 10:21] LABS: Procalcitonin 0.087 ng/mL (<0.5)
[2025-02-10 10:27] LABS: Magnesium 2.2 mg/dL (1.6-2.3)
--- NOTE | 2025-02-10 10:57 | DI.US.S_ITS ---
PROCEDURE: US PERIPH VENOUS LOW EXTREM BI INDICATIONS: SWELLING TECHNIQUE: Real-time imaging, as well as color and pulse Doppler interrogation, were performed of the deep veins of both legs from the inguinal ligament to the popliteal fossa, with documentation of the visualized calf veins. COMPARISON: None. FINDINGS: Right: The common femoral, femoral, popliteal, and the visualized calf veins are normally compressible, and free of intraluminal thrombus. Color and pulse Doppler demonstrate normal phasic intravascular flow. There is normal augmentation response to distal compression maneuver. There is chronic appearing, calcified thrombus seen involving the right greater saphenous vein proximally, 1.5 cm from the saphenofemoral junction. Left: The common femoral, femoral, popliteal, and the visualized calf veins are normally compressible, and free of intraluminal thrombus. Color and pulse Doppler demonstrate normal phasic intravascular flow. There is normal augmentation response to distal compression maneuver. Bilateral generalized lower extremity soft tissue edema is seen. IMPRESSION: No findings of deep venous thrombosis in either lower extremity. There is chronic appearing superficial venous thrombosis seen involving the proximal right greater saphenous vein. Dictated by: Noe Cervantes M.D. on 02/10/2025 at 11:00 Approved by: Noe Cervantes M.D. on 02/10/2025 at 11:01
[2025-02-10 17:17] LABS: INR 1.2 (0.9-1.3); Prothrombin Time 13.4 SECONDS (9.4-12.5)
--- NOTE | 2025-02-10 17:51 | PM.HP.1 ---
History of Present Illness History of Present Illness Date Patient Seen: 02/10/25 Time Patient Seen: 17:52 Date of Onset of Symptoms: 10/18/24 Chief complaint: Sent from Radiology, Fluid in lungs Narrative: Patient is a 64-year-old male well known to me who presents for cough and shortness of breath. Patient has had a cough which has been present since his surgery. Has not had any abnormal chest x-rays. He has been followed by his spring internship. Patient had a severe event after his CABG which required prolonged pump associated severe ejection fraction loss. Was felt to be heart attack during the procedure. He recovered from that. His last echo was somewhere between 35 and 45%. Been about 6 months. He has progressively had a cough. It progressively got more short of breath. He has had no other significant change. He has had no chest pain. No orthopnea PND. No headaches no visual symptoms. No fevers no chills otherwise no change. Patient was getting his CT scan was found to have a large right-sided pleural effusion. With a moderate left-sided 1. No other significant change. Was brought in for diuresis after his BNP was markedly elevated and spring internship recommended this. [facility] Medical History HTN (hypertension) Surgical History S/P carotid endarterectomy Social History household members: significant other Smoking Status: Never smoker Meds Home Medications and Allergies Home Medications ?Medication ?Instructions ?Recorded ?Confirmed ?Type atorvastatin 20 mg tablet mg 07/05/21 History glipizide 10 mg tablet mg 07/05/21 History metformin 1,000 mg tablet mg 07/05/21 History tamsulosin 0.4 mg capsule mg PO 07/05/21 History Allergies Allergy/AdvReac Type Severity Reaction Status Date / Time gabapentin Allergy Verified 02/10/25 09:36 Review of Systems Review of Systems Narrative: Review of systems otherwise negative see above Exam Vital Signs (past 8 hours): - 02/10/25 14:55 02/10/25 15:15 02/10/25 15:30 Pulse Rate 80 68 67 Respiratory Rate 16 19 Blood Pressure 124/70 116/69 Pulse Oximetry 97 Oxygen Delivery Method 02/10/25 15:30 02/10/25 16:00 02/10/25 16:30 Pulse Rate 68 69 72 Respiratory Rate 16 18 18 Blood Pressure 115/70 114/71 124/76 Pulse Oximetry 96 96 95 Oxygen Delivery Method Room Air Room Air 02/10/25 17:00 02/10/25 17:00 Pulse Rate 81 Respiratory Rate 16 Blood Pressure 121/76 121/71 Pulse Oximetry 95 Oxygen Delivery Method Room Air Oxygen Delivery Method Room Air Narrative Exam Narrative: Alert male in no acute distress HEENT exam is unremarkable neck supple without adenopathy JVD or bruits lungs with decreased breath sounds at the base but otherwise no rhonchi or egophony that I can find. No other change. Abdomen is soft positive bowel sounds nontender he has no edema. Patient does have a fibrotic mass in the right groin but no other change. Neurologic exam is normal Objective Labs 02/10/25 09:34 02/10/25 09:34 Labs: Laboratory Results - last 24 hr 02/10/25 09:34 WBC 7.0 RBC 4.47 L Hgb 13.0 L Hct 39.7 L MCV 88.7 MCH 29.1 MCHC 32.8 RDW 17.0 H Plt Count 304 Neut % (Auto) 72.3 Lymph % (Auto) 13.6 L [place] % (Auto) 12.2 Eos % (Auto) 0.8 L Baso % (Auto) 1.1 Neut # (Auto) 5100 Lymph # (Auto) 1000 L [place] # (Auto) 900 Eos # (Auto) 100 Baso # (Auto) 100 PT 13.4 H INR 1.2 D-Dimer 1543 H Sodium 138 Potassium 4.2 Chloride 103 Carbon Dioxide 28 BUN 18 Creatinine 1.04 Estimated GFR > 60 BUN/Creatinine Ratio 17.3 Glucose 125 H Calcium 8.8 Magnesium 2.2 Total Bilirubin 0.9 AST 43 ALT 27 Alkaline Phosphatase 111 Total Creatine Kinase 100 Troponin I 0.015 NT-Pro-B Natriuret Pep 9780 H Total Protein 7.4 Albumin 4.1 Globulin 3.3 Albumin/Globulin Ratio 1.2 Procalcitonin 0.087 Assessment & Plan Assessment & Plan narrative: Large right pleural effusion. Possibly secondary to congestive heart failure. No other changes. No evidence of fever. Doubt this is related to infection or tumor. Needs to be drained. Surgeon was apparently going to drain it but found out he was on Plavix and aspirin and then decide if we better maybe if Radiology did. Given that we are going to repeat a CT scan tomorrow to make sure he does not have any PEs at that point the question would be whether or not we can safely drain it despite his Plavix and aspirin. That would be my recommendation. Discussed with covering Dr. Trotter tomorrow. Will decide then. Otherwise will do it as an outpatient. Congestive heart failure. Will obtain echo. His markedly elevated BNP. Aggressive IV diuresis and will follow certainly does not appear to be significantly fluid overloaded on exam there has no effusion no swelling no other changes but will see how things go will see what his echo does not will see how he is otherwise he might need to be discharge and follow-up as an outpatient. Saphenous vein clot. Appears to be old. He had a significant clot in that area after his cardiac catheterization on his last 1 and it has gotten better and better. I do not think this is significant risk but due to his cough will obtain a CT for PE. I would not at this time cover for anticoagulation we will see what his CT scan shows. Follow from there History of coronary artery disease. Stable at this time. Will continue his usual meds. Type 2 diabetes. Apparently we do not cover Jardiance. But will use his metformin and glipizide hopefully he has not going to be here that long so he had not follow History of reflux continue pantoprazole instead of his omeprazole Code status full DVT prophylaxis Lovenox Disposition CT scan tomorrow IV diuresis and hopefully potentially draining his effusion tomorrow. Will see how things go. Time-Based Coding :: [TOTAL MINUTES] spent with patient and on the chart (including review of chart, obtaining history, exam, reviewing outside data, placing orders, documenting exam and treatment plan, and counseling patient) on [DATE].
--- NOTE | 2025-02-10 18:44 | PC.ADMIT ---
[email or web address] [facility] #[id number] Admission Note: Pt arrived via wheelchair from ED to room 228 at approximately 1740. A&Ox4, ambulatory. 100% oxygenation on RA, dry hacking cough. Requests to keep his own clothes on at this time and to stay out of the bed. Pt oriented to room, call light within reach. Visitors at the bedside. Care ongoing. The patient,Doe Sotomayor,64 y/o, was given written information regarding hospital policies, unit procedures and contact persons. Patient's smoking status: Never smoker. Vital Signs - 8 hr 02/10/25 14:55 02/10/25 15:15 02/10/25 15:30 Temperature Pulse Rate 80 68 67 Respiratory Rate 16 19 Blood Pressure 124/70 116/69 Pulse Oximetry 97 Oxygen Delivery Method Oxygen Flow Rate 02/10/25 15:30 02/10/25 16:00 02/10/25 16:30 Temperature Pulse Rate 68 69 72 Respiratory Rate 16 18 18 Blood Pressure 115/70 114/71 124/76 Pulse Oximetry 96 96 95 Oxygen Delivery Method Room Air Room Air Oxygen Flow Rate 02/10/25 17:00 02/10/25 17:00 02/10/25 18:21 Temperature 97.7 F Pulse Rate 81 80 Respiratory Rate 16 18 Blood Pressure 121/76 121/71 110/64 Pulse Oximetry 95 100 Oxygen Delivery Method Room Air Oxygen Flow Rate 0 02/10/25 18:23 Temperature Pulse Rate Respiratory Rate Blood Pressure Pulse Oximetry Oxygen Delivery Method Room Air Oxygen Flow Rate
[2025-02-10] MEDS: SODIUM CHLORIDE 0.9% FLUSH 10 ML IV ×2 (18:50→20:36)
[2025-02-11] VITALS (9 sets, daily range): BP systolic 90–116; BP diastolic 58–65; PULSE 67–85; RESP 16–20; TEMP 36.3–36.7; O2SAT 94–100
[2025-02-11 00:22] LABS: MRSA (Nasal) PCR NOT DETECTED (Not Detect)
[2025-02-11] MEDS: SODIUM CHLORIDE 0.9% FLUSH 10 ML IV ×2 (02:06→09:44)
[2025-02-11] MEDS: FUROSEMIDE 40 MG/4 ML VIAL IV ×3 (02:06→17:45)
[2025-02-11 05:37] LABS: Blood Urea Nitrogen 19 mg/dL (9-20); Calcium 9.0 mg/dL (8.4-10.2); Carbon Dioxide 33 mmol/L (22-32); Chloride 99 mmol/L (98-107); Estimated Glomerular Filt Rate > 60 mL/min (>60); Glucose 55 mg/dL (70-99); HEMOLYSIS < 15 (0-50); Potassium 3.5 mmol/L (3.4-5.1); Sodium 141 mmol/L (137-145)
[2025-02-11] MEDS: PANTOPRAZOLE DR 40 MG TABLET PO (06:35)
[2025-02-11] MEDS: METOPROLOL ER 25 MG TABLET PO (08:23)
[2025-02-11] MEDS: POTASSIUM CHLORIDE 20 MEQ TAB 40 MEQ PO (08:23)
[2025-02-11] MEDS: METFORMIN HCL 500 MG TABLET 1000 MG PO (08:25)
--- NOTE | 2025-02-11 09:25 | P.PN_ITS ---
Subjective Subjective Date Patient Seen: 02/11/25 Time Patient Seen: 09:25 Interval history: Patient admitted yesterday with large pleural effusions thought to be secondary to congestive heart failure. Patient actually only minimally symptomatic with mild dyspnea with exertion and no hypoxia on examination Admitted with initial plan for thoracentesis and vigorous diuresis. Echocardiography as well (last echo 6 months or so ago). Had CABG 6+ months ago and, unfortunately, significant cardiac issues since that time General surgery unwilling to perform thoracentesis while patient on aspirin plus Plavix. Radiology not available to perform procedure until Thursday Admitted and placed on IV diuretics with excellent urine output proximally 3 L overnight No change in cardiovascular status CT scan done to rule out pulmonary embolism does not demonstrate evidence of acute pulmonary embolism, although somewhat limited of course by his large pleural effusions This morning patient is sitting up in a bedside chair says his cough which is his primary symptom is improved. Notes that he is indeed producing a lot of urine. Was having echo when I checked on him earlier that has now been completed Exam Vital Signs (past 8 hours): - 02/11/25 03:35 02/11/25 07:00 02/11/25 07:00 Temperature 98.1 F Pulse Rate 73 Respiratory Rate 20 Blood Pressure 104/65 Pulse Oximetry 94 99 Oxygen Delivery Method Room Air Room Air Oxygen Flow Rate 0 02/11/25 08:04 02/11/25 08:53 Temperature Pulse Rate 85 70 Respiratory Rate 16 Blood Pressure 108/59 L 105/60 Pulse Oximetry 94 Oxygen Delivery Method Oxygen Flow Rate 0 Oxygen Delivery Method Room Air Oxygen Flow Rate 0 Objective Labs 02/10/25 09:34 02/11/25 04:13 Labs: Laboratory Results - last 24 hr 02/10/25 02/10/25 02/11/25 09:34 17:44 04:13 WBC 7.0 RBC 4.47 L Hgb 13.0 L Hct 39.7 L MCV 88.7 MCH 29.1 MCHC 32.8 RDW 17.0 H Plt Count 304 Neut % (Auto) 72.3 Lymph % (Auto) 13.6 L [place] % (Auto) 12.2 Eos % (Auto) 0.8 L Baso % (Auto) 1.1 Neut # (Auto) 5100 Lymph # (Auto) 1000 L [place] # (Auto) 900 Eos # (Auto) 100 Baso # (Auto) 100 PT 13.4 H INR 1.2 D-Dimer 1543 H Sodium 138 141 Potassium 4.2 3.5 Chloride 103 99 Carbon Dioxide 28 33 H BUN 18 19 Creatinine 1.04 1.10 Estimated GFR > 60 > 60 BUN/Creatinine Ratio 17.3 17.3 Glucose 125 H 55 L POC Whole Bld Glucose Calcium 8.8 9.0 Magnesium 2.2 Total Bilirubin 0.9 AST 43 ALT 27 Alkaline Phosphatase 111 Total Creatine Kinase 100 Troponin I 0.015 NT-Pro-B Natriuret Pep 9780 H Total Protein 7.4 Albumin 4.1 Globulin 3.3 Albumin/Globulin Ratio 1.2 Procalcitonin 0.087 Nasal Screen MRSA (PCR) Not detected 02/11/25 06:04 WBC RBC Hgb Hct MCV MCH MCHC RDW Plt Count Neut % (Auto) Lymph % (Auto) [place] % (Auto) Eos % (Auto) Baso % (Auto) Neut # (Auto) Lymph # (Auto) [place] # (Auto) Eos # (Auto) Baso # (Auto) PT INR D-Dimer Sodium Potassium Chloride Carbon Dioxide BUN Creatinine Estimated GFR BUN/Creatinine Ratio Glucose POC Whole Bld Glucose 56 L Calcium Magnesium Total Bilirubin AST ALT Alkaline Phosphatase Total Creatine Kinase Troponin I NT-Pro-B Natriuret Pep Total Protein Albumin Globulin Albumin/Globulin Ratio Procalcitonin Nasal Screen MRSA (PCR) [facility] Medical History Stroke Expressive aphasia Myocardial infarction (~12/2022) Bladder cancer Chronic gout Hyperlipidemia, unspecified Left carotid artery stenosis TIA (transient ischemic attack) Prostate cancer BPH w urinary obs/LUTS DVT (deep venous thrombosis) GERD without esophagitis Coronary artery disease Type 2 diabetes mellitus HTN (hypertension) Surgical History S/P appy Status post aorto-coronary artery bypass graft (~03/2024) S/P carotid endarterectomy Social History household members: significant other Smoking Status: Never smoker alcohol intake: never Assessment & Plan Assessment & Plan narrative: 1. Respiratory-patient with bilateral pleural effusions right greater than left. Elevation of BNP and clinical past history would strongly suggest congestive heart failure although his lack of hypoxia somewhat argues against that. Certainly will need to have these at least sampled, if not drained, and evaluation for other potential etiologies for his pleural effusions undertaken. Does not really appear to be an infectious etiology given lack of associated findings with lab and clinical picture. Would need to rule out malignancy although that also seems less likely. Overwhelmingly this would seem to be acute congestive heart failure For now however he is clinically stable with minimal symptoms and no significant respiratory compromise. I would agree with the caution from general surgery regarding thoracentesis in the setting of dual antiplatelet therapy. Would probably best done electively carefully by Radiology and probably as an outpatient. For now would certainly continue with aggressive diuresis check echocardiography etcetera 2. Cardiac-do not have all details regarding patient's past history, certainly will check echocardiography at this time and continue blood pressure management diuresis etcetera. If indeed has reduced left ventricular ejection fraction may benefit from MARICRUZ inhibitor/ARB (especially since he has diabetes) etcetera. No evidence of an acute cardiac issue at this time with normal troponins, ECG does show new right bundle branch block but old ECG is prior to bypass surgery and recent cardiac events etcetera. 3. Diabetes-continue patient's current oral meds. Unable to give Jardiance while hospitalized. Monitor blood sugars continue on carb consistent diet with insulin coverage as backup 4. Hyperlipidemia-continue usual medications 5. Disposition-patient really not very symptomatic and no evidence hypoxia. Since we are unable to obtain thoracentesis from Radiology over the weekend, may be okay to discharge patient prior to thoracentesis and have that obtained as an outpatient. We will continue with vigorous IV diuresis while hospitalized however. Would probably like to see results of echocardiogram prior to discharge Time-Based Coding :: [TOTAL MINUTES] spent with patient and on the chart (including review of chart, obtaining history, exam, reviewing outside data, placing orders, documenting exam and treatment plan, and counseling patient) on [DATE]. Quality VTE Deep Vein Thrombosis/Pulmonary Embolism Present on Admission: No IH PROFEE Park Aide Document charge(s): Yes Charge Codes Subsequent inpatient/observation care: [id number]
[2025-02-11] MEDS: CLOPIDOGREL 75 MG TABLET PO (09:43)
[2025-02-11] MEDS: ENOXAPARIN 40 MG/0.4 ML SYRINGE SUBCUT (09:44)
[2025-02-11] MEDS: ASPIRIN EC 81 MG TABLET PO (09:44)
--- NOTE | 2025-02-11 14:42 | CM.DANOTE ---
Patient is a 64 yo male who was admitted INPT Status on 02/10/25 for Fluid in Lungs. Pt has M[place] and [place] for [place] and his PCP Is Dr. Gonzales Becerra at [facility]. EMR was reviewed. Per , pt with hx of CABG and cardiac issues during procedure and admitted now with moderate Pleural Effusion from CHF. Plan of ongoing diuresis and Echo and CT to determine if thoracentesis can be completed outpt setting vs admission. Per RN, pt on room air and independent in room. SW met bedside with pt sitting on window bench seat in the [place] and explained role and pt confirms he lives at home in [facility] alone, has supportive Sig Other and local supportive family. Pt is active and independent at baseline and does not use DME for ambulation and denies any hx of HH or SNF. Pt preference is to discharge home with outpt f/u and does not anticipate any further discharge planning needs. Pt confirms he drove himself to the hospital for imaging and ended up getting admitted and therefore plans to drive his vehicle home at d/c. Plan: SW to follow for further imaging to confirm safe d/c home when stable and any further identified needs. DECLAN Bal Discharge Planning/Care Management CM Discharge Assessment Start: 02/10/25 18:20 Freq: Status: Active Protocol: Document 02/11/25 14:38 BF (Rec: 02/11/25 14:40 BF [id number]) Discharge Planning Assessment Assigned Discharge DECLAN [employer] Consultant DPOA/Assigned informally brother Dheeraj Designee Name Contact Information [phone] Advance Directives? No Advance Directives No on File History Provided By Patient,Medical Record Has Patient been No admitted in last 30 days? Prior Living Apartment/Condo Arrangements Household Members significant other Type of Drives own vehicle transporation used prior to admit Independent with ADL Yes 's Is patient alert and Yes oriented? Caregiver for No Another Barriers to No Discharge Discharge Plan Home Transportation Vehicle in parking lot Arrangement Referrals Initiated None needed Review Status In Process Please Provide Date 02/11/25 Initial DC Assessment Was Performed Next Review Type Continued Stay Review
--- NOTE | 2025-02-11 17:42 | DI.ECHO.S_ITS ---
[facility] : : [address] : : [place] : : [id number] : : Phone: [phone] Echocardiogram Report + + :Name: KIM YODER Study Date: 02/11/2025 Height: 68 in : :[facility] ReadingLocation: Weight: 147 lb : : Gender: Male BSA: 1.8 m2 : :: 1960 Age: 64 yrs BP: 108/59 mmHg: :Reason For Study: CONGESTIVE HEART FAILURE : :Ordering Physician: LIZA, : :GUALBERTO Performed By: Patti England : :Referring: GUALBERTO DE JESUS : + + Interpretation Summary 1. The left ventricular contractility is severely compromised. Estimated ejection fraction is approximately 25-30%. There is severe hypokinesis of the anterior and inferior segments. There is also associated thinning of the myocardium in the segments. Grade 3 diastolic dysfunction noted. Abnormal global longitudinal strain of -9.1%. 2. The right ventricle contractility is severely compromised. 3. Mild left atrial enlargement. The right ventricle is dilated. The right atrium and left ventricle are of normal size. 4. Mild mitral regurgitation. 5. Severe low-flow low gradient aortic valvular stenosis with peak velocity of 2.4 m/s and dimensionless index of 0.22. Mild aortic insufficiency present. 6. Mild tricuspid regurgitation with mildly elevated pulmonary systolic artery pressures at 47 mmHg. 7. No obvious intracardiac shunts. 8. No obvious intracardiac masses nor thrombi. 9. No hemodynamically significant pericardial effusion. 10. Low right-sided filling pressures. Conclusion: Severe biventricular systolic function with severe low-flow low gradient aortic valvular stenosis. When compared with previous echocardiogram, there is a significant decline in biventricular systolic function. Procedure: A two-dimensional transthoracic echocardiogram with color flow and Doppler was performed. The study quality was technically adequate. Comparison is made with the echocardiogram of 03/26/2023. The patient was in sinus rhythm with heart rates between 65-77 bpm during the exam. Left Ventricle: The left ventricle is normal in size and wall thickness. Left ventricular global longitudinal strain average is -9.1%. The ejection fraction is estimated to be 25-30%. There is anterior wall hypokinesis. There is basal anteroseptal wall hypokinesis. There is mid anteroseptal wall hypokinesis. There is apical septal wall hypokinesis. Thin and bright LV wall segment of inferior/ inferior septal suggests a old myocardial infarction. Grade III diastolic dysfunction with elevated left atrial pressure. Right Ventricle: The right ventricle is mild to moderately dilated. Right ventricular systolic function is severely reduced. Atria: The left atrium is mildly dilated. Right atrial size is normal. There is no Doppler evidence for an interatrial shunt. Mitral Valve: There is moderate mitral annular calcification. The mitral valve leaflets are mildly calcified. The mitral valve mean gradient is 1.5 mmHg. There is mild mitral regurgitation. Aortic Valve: The aortic valve is moderately calcified. There is moderate to severely reduced leaflet mobility. The peak aortic velocity is 2.4 m/sec. The aortic valve mean gradient is 15 mmHg. There is mild aortic regurgitation. Tricuspid Valve: The tricuspid valve leaflets are thin and pliable. There is mild tricuspid regurgitation. Pulmonic Valve: The pulmonic valve leaflets are thin and pliable; valve motion is normal. There is trace pulmonic regurgitation. Great Vessels: The aortic root is normal size. The dimensions of the ascending aorta are normal. The IVC is of normal diameter and collapses greater than 50% with a sniff. This suggests a low right atrial pressure of 3 mm Hg. Pericardium/ Pleura There is no pericardial effusion. There is a large left- sided pleural effusion. MMode/2D Measurements & Calculations LVIDd: 5.3 cm LVOT diam: 2.1 cm LVIDs: 4.5 cm Ao root diam: 2.8 cm FS: 15.2 % asc Aorta Diam: 3.3 cm EPSS: 1.5 cm IVSd: 0.63 cm LVPWd: 0.84 cm LV martinez. diameter/BSA (cm/m^2): 2.9 LV sys. diameter/BSA (cm/m^2): 2.5 LA A2 area: 20.1 cm2 RA long axis: 4.7 cm LA A4 area: 22.9 cm2 RA area: 15.4 cm2 LA length (vol): 5.6 cm RA vol: 42.8 ml LA vol: 69.8 ml RA : 23.8 ml/m2 LA vol index: 38.9 ml/m2 IVC diam: 1.1 cm RVD1 (basal): 4.4 cm TAPSE: 0.95 cm Doppler Measurements & Calculations Ao V2 max: 243.2 cm/sec LVOT Max Dixon: 57.1 cm/sec Ao V2 mean: 181.1 cm/sec LV V1 max P.3 mmHg Ao max P.7 mmHg LV V1 VTI: 12.2 cm Ao mean P.3 mmHg KEVIN(I,D): 0.77 cm2 Ao V2 VTI: 54.6 cm KEVIN(V,D): 0.80 cm2 sev ratio: 0.22 KEVIN indexed to BSA (cm^2/m^2): 0.43 AI P1/2t: 406.6 msec AI dec slope: 250.4 cm/sec2 MV E max dixon: 88.3 cm/sec TR max dixon: 342.3 cm/sec MV A max dixon: 23.5 cm/sec TR max P.9 mmHg MV E/A: 3.8 PA V2 max: 49.8 cm/sec Med Peak E' Dixon: 2.3 cm/sec PA V2 mean: 35.0 cm/sec E/E' med: 38.2 PA mean P.54 mmHg Lat Peak E' Dixon: 2.6 cm/sec PA pr(Accel): 41.1 mmHg E/E' lat: 34.2 E/e' average: 36.2 MV dec time: 0.22 sec MVA(VTI): 1.6 cm2 MV V2 mean: 56.3 cm/sec SV(LVOT): 41.8 ml MV mean P.5 mmHg MV V2 VTI: 26.1 cm Reading Physician:MARIA TERESA
--- NOTE | 2025-02-11 17:43 | DI.CT.S_ITS ---
PROCEDURE: CT ANGIO CHEST PE PROTOCOL INDICATIONS: dyspnea TECHNIQUE: After the administration of intravenous contrast, 2 mm thick sections acquired from the pulmonary apices to the posterior costophrenic angles. 3-dimensional maximum intensity projection (MIP) coronal and sagittal reformats were then acquired through the thorax. For radiation dose reduction, the following was used: automated exposure control, adjustment of mA and/or kV according to patient size. COMPARISON: , CT, CT CHEST W CON, 02/10/2025, 8:52. FINDINGS: Image quality: Suboptimal for evaluation segmental/subsegmental branches. Pulmonary arteries: Pulmonary arteries are normal in size, and demonstrate no intraluminal filling defects to suggest central pulmonary embolism. Lower Neck: No enlarged lymph nodes. Thyroid: No thyroid nodules which require sonographic follow up, per consensus guidelines. Axillae: No enlarged lymph nodes. Chest Wall: Unremarkable. Bones: Unremarkable. Lungs and Pleura: Moderate bilateral effusions with superimposed consolidative opacities right greater than left. Heart: Heart size is normal. No pericardial effusion. Thoracic Vessels: No aortic aneurysm. Mediastinum and [place]: No enlarged lymph nodes. Esophagus: No wall thickening. Minimal hiatal hernia. Upper Abdomen: Visualized upper abdomen solid organs and bowel loops appear normal. IMPRESSION: No central pulmonary embolism. Distal branches are suboptimally evaluated. Moderate effusions right greater than with superimposed consolidations. The latter may be reflective atelectasis/pneumonia. Appearance unchanged compared to prior exam. Dictated by: Kendal Marrero M.D. on 02/11/2025 at 8:54 Approved by: Kendal Marrero M.D. on 02/11/2025 at 8:56
--- NOTE | 2025-02-11 19:39 | PC.NURSE ---
Late entry: Pt. was hypoglycemic this morning with am labs showing a BG result of 55, BG recheck with a glucometer with a result of 56. The whole episode pt. was asymptomatic stating that it is normal for him to be hypoglycemic in the am and he takes care of it by eating a meal when he wakes up. I educated pt. that his BG result is not normal and needs to be corrected. Pt. told this nurse that it will ok once he eats breakfast and this nurse informed pt that breakfast is not until 8 am and his low BG needs to be corrected. Pt. given 1/2 peanut butter and jelly sandwich with 120 ml of orange juice and recheck BG approximately 20 minutes after, showed a result of 105. Report given to day MARIA E Kennedy.
[2025-02-12] MEDS: FUROSEMIDE 40 MG/4 ML VIAL IV (02:35)
[2025-02-12] MEDS: SODIUM CHLORIDE 0.9% FLUSH 10 ML IV ×2 (02:35→08:12)
[2025-02-12 05:22] VITALS: BP 96/54; PULSE 78; RESP 16; TEMP 36.3; O2SAT 96
[2025-02-12 05:25] LABS: Magnesium 1.8 mg/dL (1.6-2.3)
[2025-02-12 06:02] LABS: Blood Urea Nitrogen 24 mg/dL (9-20); Calcium 9.3 mg/dL (8.4-10.2); Chloride 95 mmol/L (98-107); Estimated Glomerular Filt Rate > 60 mL/min (>60); Glucose 75 mg/dL (70-99); HEMOLYSIS < 15 (0-50); Potassium 3.8 mmol/L (3.4-5.1); Sodium 139 mmol/L (137-145)
[2025-02-12 06:08] LABS: Carbon Dioxide 35 mmol/L (22-32)
[2025-02-12] MEDS: PANTOPRAZOLE DR 40 MG TABLET PO (06:36)
[2025-02-12 07:00] VITALS: O2SAT 100
[2025-02-12 07:59] VITALS: BP 95/57; PULSE 79; RESP 15; O2SAT 94
[2025-02-12] MEDS: ASPIRIN EC 81 MG TABLET PO (08:11)
[2025-02-12] MEDS: CLOPIDOGREL 75 MG TABLET PO (08:11)
[2025-02-12] MEDS: METOPROLOL ER 25 MG TABLET PO (08:12)
[2025-02-12] MEDS: ENOXAPARIN 40 MG/0.4 ML SYRINGE SUBCUT (08:12)
[2025-02-12 08:42] VITALS: BP 98/57; PULSE 81
--- NOTE | 2025-02-12 10:30 | P.DS_ITS ---
History of Present Illness History of Present Illness Date Patient Seen: 02/12/25 Time Patient Seen: 10:30 Chief complaint: Sent from Radiology, Fluid in lungs Narrative: Patient is a 64-year-old male well known to me who presents for cough and shortness of breath. Patient has had a cough which has been present since his surgery. Has not had any abnormal chest x-rays. He has been followed by his physicians and surgeons. Patient had a severe event after his CABG which required prolonged pump associated severe ejection fraction loss. Was felt to be heart attack during the procedure. He recovered from that. His last echo was somewhere between 35 and 45%. Been about 6 months. He has progressively had a cough. It progressively got more short of breath. He has had no other significant change. He has had no chest pain. No orthopnea PND. No headaches no visual symptoms. No fevers no chills otherwise no change. Patient was getting his CT scan was found to have a large right-sided pleural effusion. With a moderate left-sided 1. No other significant change. Was brought in for diuresis after his BNP was markedly elevated and physicians and surgeons recommended this. {from Dr. De Jesus's H&P 02/10/25} Discharge Providers Provider Date of admission: 02/10/25 16:50 Discharge Date: 02/12/25 Primary care physician: Gualberto De Jesus MD Discharge provider: Brent Trotter MD Summary Hospital Course Discharge Diagnosis: 1. Acute on chronic congestive heart failure with reduced ejection fraction 2. Chronic congestive heart failure with reduced ejection fraction 3. Right ventricular failure 4. Diabetes type 2 on oral meds 5. Bilateral pleural effusion secondary to congestive heart failure 6. Coronary artery disease 7. Hyperlipidemia Hospital Course: As above patient was admitted with bilateral pleural effusions and evidence of congestive heart failure. Fortunately he was not hypoxic. He was treated with aggressive IV diuretics and had an excess of 4 L out. His cough which is his primary symptom improved significantly his stamina improved some he was not as breathless with activity On the day of discharge she was modestly hypotensive but by report that is kind of where he has been which has limited the ability to treat his heart disease with medications. Patient denied any syncope near-syncope lightheadedness or dizziness ball up out of bed on day of discharge and so was felt to be safe to discharge with blood pressure in the mid 90s Patient had repeat echocardiography performed at [facility] which demonstrated left ventricular ejection fraction of approximately 25-30% with severe hypokinesis of anterior and inferior segments as well as thinning of the myocardium in these segments. Grade 3 diastolic dysfunction also noted. Also noted was severe right ventricular contractility compromise. Also severe low- flow low gradient aortic valve stenosis Given improvement in patient's symptoms he was felt to be stable for discharge to continue cardiac and pulmonary evaluation as an outpatient. He likely would benefit from consideration of thoracentesis to remove fluid as well as sample fluid for studies to exclude other etiologies beyond heart failure for accumulation of his pleural effusions Patient's diabetes was very well controlled during this hospitalization on oral medications and diabetic diet Status at Discharge Cognitive/behavioral status at discharge: at baseline, oriented Functional status at discharge: independent ambulation Overall status at discharge: patient is progressing back to baseline Time Spent with Patient Time spent: Greater than 30 minutes Exam Vital Signs (past 8 hours): - 02/12/25 05:22 02/12/25 07:00 02/12/25 07:00 Temperature 97.3 F L Pulse Rate 78 Respiratory Rate 16 Blood Pressure 96/54 L Pulse Oximetry 96 100 Oxygen Delivery Method Room Air Room Air Oxygen Flow Rate 0 02/12/25 07:59 02/12/25 08:42 Temperature Pulse Rate 79 81 Respiratory Rate 15 Blood Pressure 95/57 L 98/57 L Pulse Oximetry 94 Oxygen Delivery Method Oxygen Flow Rate 0 Oxygen Delivery Method Room Air Oxygen Flow Rate 0 Objective Imaging Echo: Radiologist's impression: Procedure: EC echo doppler complete Ordering Provider: Gualberto De Jesus MD [facility] +---------+ Hospital : : [address] [place] [address]. : : [place] : : [id number] : : Phone: [phone] Echocardiogram Report + + :Name: PARESHKIM Miguel Ángel Study Date: 02/11/2025 Height: 68 in : :[facility] ReadingLocation: Weight: 147 lb : : Gender: Male BSA: 1.8 m2 : :: 1960 Age: 64 yrs BP: 108/59 mmHg: :Reason For Study: CONGESTIVE HEART FAILURE : :Ordering Physician: LIZA, : :GUALBERTO Performed By: Patti England : :Referring: GUALBERTO DE JESUS : + + Interpretation Summary 1. The left ventricular contractility is severely compromised. Estimated ejection fraction is approximately 25-30%. There is severe hypokinesis of the anterior and inferior segments. There is also associated thinning of the myocardium in the segments. Grade 3 diastolic dysfunction noted. Abnormal global longitudinal strain of -9.1%. 2. The right ventricle contractility is severely compromised. 3. Mild left atrial enlargement. The right ventricle is dilated. The right atrium and left ventricle are of normal size. 4. Mild mitral regurgitation. 5. Severe low-flow low gradient aortic valvular stenosis with peak velocity of 2.4 m/s and dimensionless index of 0.22. Mild aortic insufficiency present. 6. Mild tricuspid regurgitation with mildly elevated pulmonary systolic artery pressures at 47 mmHg. 7. No obvious intracardiac shunts. 8. No obvious intracardiac masses nor thrombi. 9. No hemodynamically significant pericardial effusion. 10. Low right-sided filling pressures. Conclusion: Severe biventricular systolic function with severe low-flow low gradient aortic valvular stenosis. When compared with previous echocardiogram, there is a significant decline in biventricular systolic function. Procedure: A two-dimensional transthoracic echocardiogram with color flow and Doppler was performed. The study quality was technically adequate. Comparison is made with the echocardiogram of 03/26/2023. The patient was in sinus rhythm with heart rates between 65-77 bpm during the exam. Left Ventricle: The left ventricle is normal in size and wall thickness. Left ventricular global longitudinal strain average is -9.1%. The ejection fraction is estimated to be 25-30%. There is anterior wall hypokinesis. There is basal anteroseptal wall hypokinesis. There is mid anteroseptal wall hypokinesis. There is apical septal wall hypokinesis. Thin and bright LV wall segment of inferior/ inferior septal suggests a old myocardial infarction. Grade III diastolic dysfunction with elevated left atrial pressure. Right Ventricle: The right ventricle is mild to moderately dilated. Right ventricular systolic function is severely reduced. Atria: The left atrium is mildly dilated. Right atrial size is normal. There is no Doppler evidence for an interatrial shunt. Mitral Valve: There is moderate mitral annular calcification. The mitral valve leaflets are mildly calcified. The mitral valve mean gradient is 1.5 mmHg. There is mild mitral regurgitation. Aortic Valve: The aortic valve is moderately calcified. There is moderate to severely reduced leaflet mobility. The peak aortic velocity is 2.4 m/sec. The aortic valve mean gradient is 15 mmHg. There is mild aortic regurgitation. Tricuspid Valve: The tricuspid valve leaflets are thin and pliable. There is mild tricuspid regurgitation. Pulmonic Valve: The pulmonic valve leaflets are thin and pliable; valve motion is normal. There is trace pulmonic regurgitation. Great Vessels: The aortic root is normal size. The dimensions of the ascending aorta are normal. The IVC is of normal diameter and collapses greater than 50% with a sniff. This suggests a low right atrial pressure of 3 mm Hg. Pericardium/ Pleura There is no pericardial effusion. There is a large left- sided pleural effusion. MMode/2D Measurements & Calculations LVIDd: 5.3 cm LVOT diam: 2.1 cm LVIDs: 4.5 cm Ao root diam: 2.8 cm FS: 15.2 % asc Aorta Diam: 3.3 cm EPSS: 1.5 cm IVSd: 0.63 cm LVPWd: 0.84 cm LV martinez. diameter/BSA (cm/m^2): 2.9 LV sys. diameter/BSA (cm/m^2): 2.5 LA A2 area: 20.1 cm2 RA long axis: 4.7 cm LA A4 area: 22.9 cm2 RA area: 15.4 cm2 LA length (vol): 5.6 cm RA vol: 42.8 ml LA vol: 69.8 ml RA : 23.8 ml/m2 LA vol index: 38.9 ml/m2 IVC diam: 1.1 cm RVD1 (basal): 4.4 cm TAPSE: 0.95 cm Doppler Measurements & Calculations Ao V2 max: 243.2 cm/sec LVOT Max Dixon: 57.1 cm/sec Ao V2 mean: 181.1 cm/sec LV V1 max P.3 mmHg Ao max P.7 mmHg LV V1 VTI: 12.2 cm Ao mean P.3 mmHg KEVIN(I,D): 0.77 cm2 Ao V2 VTI: 54.6 cm KEVIN(V,D): 0.80 cm2 sev ratio: 0.22 KEVIN indexed to BSA (cm^2/m^2): 0.43 AI P1/2t: 406.6 msec AI dec slope: 250.4 cm/sec2 MV E max dixon: 88.3 cm/sec TR max dixon: 342.3 cm/sec MV A max dixon: 23.5 cm/sec TR max P.9 mmHg MV E/A: 3.8 PA V2 max: 49.8 cm/sec Med Peak E' Dixon: 2.3 cm/sec PA V2 mean: 35.0 cm/sec E/E' med: 38.2 PA mean P.54 mmHg Lat Peak E' Dixon: 2.6 cm/sec PA pr(Accel): 41.1 mmHg E/E' lat: 34.2 E/e' average: 36.2 MV dec time: 0.22 sec MVA(VTI): 1.6 cm2 MV V2 mean: 56.3 cm/sec SV(LVOT): 41.8 ml MV mean P.5 mmHg MV V2 VTI: 26.1 cm Reading Physician:PM Labs 02/10/25 09:34 02/12/25 04:19 Labs: Laboratory Results - last 24 hr 02/11/25 02/11/25 02/11/25 11:37 16:42 20:39 Sodium Potassium Chloride Carbon Dioxide BUN Creatinine Estimated GFR BUN/Creatinine Ratio Glucose POC Whole Bld Glucose 115 H 109 H 150 H Calcium Magnesium 02/12/25 02/12/25 04:19 07:55 Sodium 139 Potassium 3.8 Chloride 95 L Carbon Dioxide 35 H BUN 24 H Creatinine 1.23 Estimated GFR > 60 BUN/Creatinine Ratio 19.5 Glucose 75 POC Whole Bld Glucose 71 Calcium 9.3 Magnesium 1.8 PFSH Medical History Stroke Expressive aphasia Myocardial infarction (~12/2022) Bladder cancer Chronic gout Hyperlipidemia, unspecified Left carotid artery stenosis TIA (transient ischemic attack) Prostate cancer BPH w urinary obs/LUTS DVT (deep venous thrombosis) GERD without esophagitis Coronary artery disease Type 2 diabetes mellitus HTN (hypertension) Surgical History S/P appy Status post aorto-coronary artery bypass graft (~03/2024) S/P carotid endarterectomy Social History household members: significant other Smoking Status: Never smoker alcohol intake: never Discharge Assessment & Plan Assessment and Plan Plan of Treatment: Discharge home on patient's usual medications (as best as can be determined without access to his outpatient EMR), with the addition of torsemide which patient was taking previously as well as potassium replacement for the diuretics. Patient will need to be seen by his PCP within 7-10 days to ensure stability and plan for additional evaluation and management Copies of this note will be sent to his PCP and his primary physicians and surgeons Discharge Plan Discharge Plan Patient Disposition: Home Discharge orders & Medications Prescriptions: New clopidogrel 75 mg Tablet 75 mg PO DAILY Qty: 30 0RF aspirin 81 mg Tablet,Delayed Release (Dr/Ec) 81 mg PO DAILY Qty: 30 0RF metoprolol succinate 25 mg Tablet Extended Release 24 Hr 25 mg PO DAILY Qty: 30 0RF torsemide 20 mg tablet 20 mg PO DAILY Qty: 30 0RF potassium chloride 20 mEq tablet extended release 20 meq PO BID Qty: 60 0RF rosuvastatin 40 mg tablet 40 mg PO DAILY Qty: 30 0RF Entresto 24-26 mg tablet 0.5 tab PO BID Qty: 30 0RF Continued glipizide 10 mg tablet Patient Comments: TAKE 1 TABLET BY MOUTH TWICE DAILY tamsulosin 0.4 mg capsule PO Changed metformin 1,000 mg tablet 1,000 mg PO BID Qty: 60 0RF Patient Comments: TAKE 1 TABLET BY MOUTH TWICE DAILY BEFORE MEALS Discontinued atorvastatin 20 mg tablet Patient Comments: TAKE 1 TABLET BY MOUTH EVERY DAY Follow up/Referrals: Gualberto De Jesus MD [Primary Care Provider, Family Practice] - 1 Week Diet/Activity/Treatments Diet: Diet as Tolerated and Low-sodium Visit Report/Discharge Packet Instructions: DI for Heart Failure Stand Alone Forms: Congestive Heart Failure, Patient Portal/API Discharge Data Primary Care Provider: Gualberto De Jesus Quality VTE Deep Vein Thrombosis/Pulmonary Embolism Present on Admission: No IH PROFEE Charge Codes Discharge inpatient/observation: [id number]
== END 2025-02-12 10:55 | disposition home or self-care (01) | DRG 291 ==
LOC: ED 16:27 → AC 16:51 → ICU 16:53
PROVIDERS: Internal Medicine; Admitting Provider Family Medicine; Emergency Provider Emergency Medicine; PCP Family Medicine; Visit Provider Family Medicine
DX: I11.0 Hypertensive heart disease with heart failure (principal); I50.23 Acute on chronic systolic (congestive) heart failure; I82.811 Embolism and thrombosis of superficial veins of right lower extremity; J90 Pleural effusion, not elsewhere classified; J98.11 Atelectasis; R05.9 Cough, unspecified; I25.10 Atherosclerotic heart disease of native coronary artery without angina pectoris; E11.9 Type 2 diabetes mellitus without complications; K21.9 Gastro-esophageal reflux disease without esophagitis; E78.5 Hyperlipidemia, unspecified; I35.0 Nonrheumatic aortic (valve) stenosis; I50.813 Acute on chronic right heart failure; N40.0 Benign prostatic hyperplasia without lower urinary tract symptoms; Z95.1 Presence of aortocoronary bypass graft; Z79.02 Long term (current) use of antithrombotics/antiplatelets; R05.3 Chronic cough; Z79.84 Long term (current) use of oral hypoglycemic drugs; I51.7 Cardiomegaly; Z95.5 Presence of coronary angioplasty implant and graft
CPT/HCPCS: 36415; 71260; 71275; 80048; 80053; 82550; 82962; 83735; 83880; 84145; 84484; 85025; 85379; 85610; 87797; 93005; 93010; 93306; 93970; 96374; 99233; 99239; 99284; J1650; J1938; Q9967

== ENCOUNTER → 2025-02-27 09:26 | Outpatient (CLI) | payer MEDICARE, OTHER, SELFPAY ==
[2025-02-10 19:25] VITALS: BMI 24.5
--- NOTE | 2025-02-27 09:28 | DI.MG.S_ITS ---
MM diagnostic mammo BI: 02/27/2025. BI-RADS: 2 CLINICAL: 64-year old male for bilateral diagnostic mammogram. Current reported family history of breast cancer: mother. The patient reports pain (less than 1 month) in the right breast. Provided clinical history also notes a subareolar mass in the right breast. Patient has a history of prostate cancer in 2018 treated with radiation and lupron. PRIOR EXAMS: Recent Chest CT 02/11/2025. MAMMOGRAPHY TECHNIQUE: 2D and 3D (tomosynthesis) digital mammographic views obtained, with additional images as needed for full coverage. Current study was also evaluated with a Computer Aided Detection (CAD) system. DENSITY B. There are scattered areas of fibroglandular density. MAMMOGRAPHY FINDINGS Right: Central, Retroareolar, Far Anterior depth: Correlating with the patient's reported area of pain and palpable abnormality, there is mild to moderate nodular gynecomastia. This is symmetric to the left breast. There are no suspicious masses, calcifications, or other findings in the breast. Left: Central, Retroareolar, Far Anterior depth: There is mild to moderate nodular gynecomastia.This is symmetric to the right breast. There are no suspicious masses, calcifications, or other findings in the breast. IMPRESSION: * No evidence of malignancy with benign findings. RECOMMENDATIONS Right * Clinical follow-up is recommended, and further management of palpable abnormalities or other focal signs or symptoms should be based on the results of clinical evaluation. If palpable abnormality or other concerning symptom persists or progresses, further clinical evaluation should be considered. Bilateral * Clinical follow up is also recommended for the patient's gynecomastia, with evaluation for etiologies including medication/drug-related factors, hormonal or systemic disorders. COMMENTS: Findings and recommendations were conveyed to the patient during today's evaluation. OVERALL ASSESSMENT CATEGORY BI-RADS-2: Benign. ELECTRONICALLY SIGNED: Keren Mahmood M.D. on 02/27/2025 at 11:41:36 AM PT Interpreting Station ID: [id number]
== END ==
LOC: MAMMO 09:28
PROVIDERS: PCP Family Medicine; Referring Provider Family Medicine; Visit Provider Family Medicine
DX: N63.41 Unspecified lump in right breast, subareolar (principal); N62 Hypertrophy of breast; Z80.3 Family history of malignant neoplasm of breast; Z85.46 Personal history of malignant neoplasm of prostate
CPT/HCPCS: 77066; G0279